=== PATIENT | female | born 1960 | race Caucasian/White ===

== ENCOUNTER 2023-06-19 14:55 | Outpatient (AMB) | payer OTHER, SELFPAY ==
--- NOTE | 2023-06-19 15:06 | A.OFFVIS_ITS ---
Vital Signs 06/19/23 15:13 Height 5 ft 4 in Weight 199 lb 6 oz BMI 34.2 BP 130/80 Blood Pressure Location Rt brachial Position Sitting Respiration 17 Pulse 83 Pulse Source Pulse Oximeter Pulse Oximetry (%) 96 Oxygen Delivery Method Room Air Intake Visit Reasons: ENP-Wht matter changes/Fibromuscular/Confusio Intake Note: Pt presents to the office for a new pt evaluation for white matter changes, fibromuscular dysplasia and episodes of confusion. Foreign Legal Consultant Required: No Allergies amoxicillin [From Augmentin] Allergy (Mild, Verified 06/19/23 15:08) Hives clavulanic acid [From Augmentin] Allergy (Mild, Verified 06/19/23 15:08) Hives latex Allergy (Mild, Verified 06/19/23 15:08) Rash sulfa Allergy (Mild, Uncoded 06/19/23 15:08) Hives Medication List - Last Reconciled 06/19/23 by Maria C Rodríguez MD albuterol sulfate 90 mcg/actuation (Proventil HFA) 1 puff inhalation QID cholecalciferol (vitamin D3) 50 mcg PO DAILY clotrimazole 1% 1 appl topical BID cyclobenzaprine 10 mg PO BEDTIME diclofenac sodium 1% 2 grams topical QID fluticasone propion-salmeterol 100-50 mcg/dose (Wixela Inhub) 1 inh inhalation BID indapamide 1.25 mg PO QAM mupirocin 2% 1 appl topical BID peg-electrolyte soln 420 gram 240 mL PO Q10M HPI Comments Details: 62y/o female with h/o Fibromuscular dysplasia comes for evaluation of episodes of confusion. These episodes started about 6 mths ago but now has increased in frequency - 1-2 a week . The episodes last 5 minutes. Its mostly when she is driving but can also happen when she is in a store or at home. Her son has witnessed the episode as she looks confused but not dazed. when driving she feels like she does not know where she is going for few minutes. No fatigue or confusion after the episode. 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 she has h/o JACI and has CPAP.she sleeps 7 hrs a night . [facility] Medical History (Updated 06/19/23 @ 15:37 by Maria C Rodríguez MD) Episodic altered awareness JACI on CPAP Hiatal hernia HTN (hypertension) Vitamin D deficiency Fatty liver Hearing loss GERD (gastroesophageal reflux disease) Fibromyalgia Generalized anxiety disorder Fibromuscular dysplasia Surgical History S/P anal fissurectomy H/O total hysterectomy History of temporal artery biopsy H/O hemorrhoidectomy Family History Mother No problems noted. Father No problems noted. Social History Household Members: Spouse Housing: House Alcohol intake: never Patient Tobacco Use Status: Never used Tobacco Use of substances other than those prescribed or required for medical reasons: No Physical Exam Vital Signs: Last Vital Signs Pulse 83 06/19/23 15:13 Resp 17 06/19/23 15:13 BP 130/80 06/19/23 15:13 Pulse Ox 96 06/19/23 15:13 Oxygen Delivery Method Room Air 06/19/23 15:13 BMI result Body Mass Index 34.2 Const General: cooperative, healthy appearing, comfortable and anxious Nutritional Appearance: overweight Orientation/consciousness: patient oriented x3 Eyes Pupils: Equal, round and reactive pupils present Neuro General: patient oriented x3, gait normal, tone normal, moves all extremities and no focal motor deficits Cranial nerves: Yes Equal, round and reactive pupils present, Yes Bilaterally intact EOM present, Yes Nystagmus not present, Yes Normal facial strength present, Yes Midline tongue present, Yes Symmetric palate elevation present and Yes Ability to bilaterally elevate shoulders present Gait exam (Neuro): Normal gait present Motor exam (neuro): 5/5 motor strength present throughout and Normal motor muscle tone present throughout Deep tendon reflexes (DTR's): Right triceps reflex intensity grade: 1+, Left triceps reflex intensity grade: 1+, Rt Biceps (C5, C6): 1+, Left biceps reflex intensity grade: 1+, Right brachioradialis reflex intensity grade: 1+, Left brachioradialis reflex intensity grade: 1+, Right patellar reflex intensity gra de: 1+ and Left patellar reflex intensity grade: 1+ Coordination: [id number] test normal Assessment & Plan Assessment & Plan (1) Episodic altered awareness: Comment: ? SLeep attacks , sleep deprivation , unlikely to be seizures Code(s): R40.4 - Transient alteration of awareness Category: Medical (2) JACI on CPAP: Code(s): G47.33 - Obstructive sleep apnea (adult) (pediatric) Category: Medical (3) Generalized anxiety disorder: Code(s): F41.1 - Generalized anxiety disorder Category: Medical Plan I will evaluate her with Home sleep test, EEG I will trial her on escitalopram 10mg qd for anxiety Continue CPAP - compliance stressed I will check her Vit D TSH Vit B 12 CMP CBC ESR RPR Suggested to avoid driving . Orders: Orders EEG electroencephalogram Today G47.33 - Obstructive sleep apnea (adult) (pediatric), R40.4 - Transient alteration of awareness Complete Blood Count Auto Diff Today F41.1 - Generalized anxiety disorder, G47.33 - Obstructive sleep apnea (adult) (pediatric), R40.4 - Transient alteration of awareness TSH reflex Free T4 Today F41.1 - Generalized anxiety disorder, G47.33 - Obstructive sleep apnea (adult) (pediatric), R40.4 - Transient alteration of awareness Vitamin B12 and Folate Today F41.1 - Generalized anxiety disorder, G47.33 - Obstructive sleep apnea (adult) (pediatric), R40.4 - Transient alteration of awareness Vitamin D 25-OH (D2 and D3) Today F41.1 - Generalized anxiety disorder, G47.33 - Obstructive sleep apnea (adult) (pediatric), R40.4 - Transient alteration of awareness RPR Monitor reflex titer Today F41.1 - Generalized anxiety disorder, G47.33 - Obstructive sleep apnea (adult) (pediatric), R40.4 - Transient alteration of awareness RT home sleep study Today G47.33 - Obstructive sleep apnea (adult) (pediatric), R40.4 - Transient alteration of awareness Comprehensive Met. Panel Today F41.1 - Generalized anxiety disorder, G47.33 - Obstructive sleep apnea (adult) (pediatric), R40.4 - Transient alteration of awareness Erythrocyte Sedimentation Rate Today F41.1 - Generalized anxiety disorder, G47.33 - Obstructive sleep apnea (adult) (pediatric), R40.4 - Transient alteration of awareness Medications: New escitalopram oxalate 10 mg PO DAILY 30 tabs 6RF Coding Level of Care Code New Pt Level 4 (48650) Diagnoses Episodic altered awareness R40.4 JACI on CPAP G47.33 Generalized anxiety disorder F41.1
[2023-06-19 15:13] VITALS: BP 130/80; PULSE 83; RESP 17; O2SAT 96; BMI 34.2
== END 2023-06-19 16:04 | disposition home or self-care (01) ==
PROVIDERS: PCP Internal Medicine; Visit Provider Psychiatry & Neurology Neurology
DX: R40.4 Transient alteration of awareness (principal); G47.33 Obstructive sleep apnea (adult) (pediatric); F41.1 Generalized anxiety disorder
CPT/HCPCS: 99204; 99214

== ENCOUNTER → 2023-06-19 14:55 | Outpatient (BNVA) | payer OTHER, SELFPAY | PROVIDERS: PCP Internal Medicine; Visit Provider Psychiatry & Neurology Neurology ==

== ENCOUNTER 2023-06-19 15:50 | Outpatient (REF) | payer OTHER, SELFPAY ==
[2023-06-19 17:31] LABS: MANUAL DIFF FLAG NO
[2023-06-19 17:36] LABS: Basophils Absolute Auto 0.1 X10*3/uL (0.0-0.2); Basophils Percent Auto 0.9 % (0-2); Eosinophils Absolute Auto 0.1 X10*3/uL (0.0-0.4); Eosinophils Percent Auto 0.7 % (0-4); Hematocrit 43.6 % (37.0-47.0); Hemoglobin 15.3 g/dl (12.0-16.0); Imm Gran Abs Auto 0.02 X10*3/uL (0.00-0.03); Imm Gran Pct Auto 0.2 % (0.0-0.4); Lymphocytes Absolute Auto 2.6 X10*3/uL (1.2-4.9); Lymphocytes Percent Auto 28.7 % (20-40); Mean Corpuscular HGB Conc 35.1 g/dl (31.0-35.0); Mean Corpuscular Volume 88.3 fL (80.0-98.0); Mean Platelet Volume 10.7 fL (9.4-12.3); Monocytes Absolute Auto 0.7 X10*3/uL (0.1-1.2); Monocytes Percent Auto 7.4 % (2-11); Neutrophils Absolute Auto 5.7 x10*3/uL (2.0-8.3); Neutrophils Percent Auto 62.1 % (45-73); Platelet Count 218 X10*3/uL (160-400); Red Blood Count 4.94 X10*6/uL (4.20-5.50); Red Cell Distribution Width 12.2 % (11.0-16.0); White Blood Count 9.2 X10*3/uL (4.8-10.8)
[2023-06-19 17:54] LABS: Alanine Aminotransferase 52 U/L (0-31); Alkaline Phosphatase 93 U/L (39-117); Anion Gap 14 (12-20); Aspartate Amino Transferase 29 U/L (5-31); Bilirubin Total 0.8 mg/dL (0.0-1.0); Blood Urea Nitrogen 16 mg/dL (9-16); Calcium 9.5 mg/dL (8.4-10.2); Carbon Dioxide 28 mmol/L (22-29); Chloride 101 mmol/L (96-108); Estimated Glomerular Filt Rate > 60; Glucose Random 96 mg/dL (60-115); Potassium 3.1 mmol/L (3.3-5.1); Sodium 140 mmol/L (135-145); Total Protein 6.9 g/dL (6.5-8.0)
[2023-06-19 18:08] LABS: TSH reflex Free T4 1.03 uIU/mL (0.32-4.0)
[2023-06-19 18:27] LABS: Folate 7.9 ng/mL (> or = 4.0); Vitamin B12 428 pg/mL (200-900)
[2023-06-19 18:38] LABS: Erythrocyte Sedimentation Rate 7 MM/HR (0-20)
[2023-06-23 17:02] LABS: Vitamin D 25-OH, D2 <4 ng/mL; Vitamin D 25-OH, D3 23 ng/mL; Vitamin D 25-OH, Total 23 ng/mL (30-100)
[2023-06-24 17:14] LABS: RPR Rapid Plasma Reagin NON-REACTIVE (NON-REACTIVE)
== END 2023-06-19 15:51 | disposition home or self-care (01) ==
LOC: HO.HKASLDS 15:50
PROVIDERS: Visit Provider Psychiatry & Neurology Neurology
DX: R40.4 Transient alteration of awareness (principal); F41.1 Generalized anxiety disorder; G47.33 Obstructive sleep apnea (adult) (pediatric)
CPT/HCPCS: 36415; 80053; 82306; 82607; 82746; 84443; 85025; 85652; 86592

== ENCOUNTER 2023-07-24 13:02 | Outpatient (REF) | payer OTHER, SELFPAY ==
--- NOTE | 2023-07-24 13:05 | EEG_ITS ---
FINDINGS: Waking background activity consists of a low to moderate voltage 8 to 9 Hz posterior alpha frequency intermixed anteriorly with low voltage fast frequencies and muscle artifacts. Recurrent surging and shock transients are seen from the frontal, central regions with phase reversal at F3, sometimes with some paroxysmal features lasting 2 to 3 seconds. No clinical symptoms are reported. Photic stimulation accentuates the abnormality and produced the bifrontal slowing. Photic stimulation is without activation. IMPRESSION: This EEG is considered abnormal due to sharp configuration wave forms with phase reversal at F3 and one burst of paroxysmal sharp discharge lasting up to 3 seconds, originating in the right frontal central region that could correlate with the focus of cerebral irritability. Clinical correlation is suggested. MD ROSANNE Weinberg/MARLENA / [id number]
== END 2023-07-24 13:03 | disposition home or self-care (01) ==
LOC: HO.NEURO 13:02
PROVIDERS: Visit Provider Psychiatry & Neurology Neurology
DX: R40.4 Transient alteration of awareness (principal); G47.33 Obstructive sleep apnea (adult) (pediatric)
CPT/HCPCS: 95816

== ENCOUNTER 2024-04-07 15:09 | Outpatient (AMB) | payer OTHER, SELFPAY ==
--- NOTE | 2024-04-07 15:12 | MHC.OFFVIS ---
Vital Signs 04/07/24 15:13 Height 5 ft 4 in Weight 201 lb BMI 34.5 Pulse 80 Pulse Source Pulse Oximeter Pulse Oximetry (%) 98 Oxygen Delivery Method Room Air Intake Visit Reasons: LVM TO R/S-2 month F/U Intake Note: patient presents for follow up results for EEG done on 08/01/23 Sleep study done on 07/24/23 and labs performed on 06/15/23 Allergies amoxicillin [From Augmentin] Allergy (Mild, Verified 04/07/24 15:15) Hives clavulanic acid [From Augmentin] Allergy (Mild, Verified 04/07/24 15:15) Hives latex Allergy (Mild, Verified 04/07/24 15:15) Rash sulfa Allergy (Mild, Uncoded 04/07/24 15:15) Hives Medication List - Last Reconciled 04/07/24 by Maria C Rodríguez MD albuterol sulfate 90 mcg/actuation (Proventil HFA) 1 puff inhalation QID cholecalciferol (vitamin D3) 50 mcg PO DAILY clotrimazole 1% 1 appl topical BID cyclobenzaprine 10 mg PO BEDTIME diclofenac sodium 1% 2 grams topical QID escitalopram oxalate 10 mg PO DAILY fluticasone propion-salmeterol 100-50 mcg/dose (Wixela Inhub) 1 inh inhalation BID indapamide 1.25 mg PO QAM mupirocin 2% 1 appl topical BID peg-electrolyte soln 420 gram 240 mL PO Q10M HPI Comments Details: 62y/o female with h/o Fibromuscular dysplasia comes for evaluation of episodes of confusion. EEG showed some sharp waves and i started her on levetiracetam 500mg bid But she stopped 3 months ago as she was feeling good. she is escitalopram 10mg qd has helped her anxiety , depression and is feeling good. History from initial visit-These episodes started about 6 mths ago but now has increased in frequency - 1-2 a week . The episodes last 5 minutes. Its mostly when she is driving but can also happen when she is in a store or at home. Her son has witnessed the episode as she looks confused but not dazed. when driving she feels like she does not know where she is going for few minutes. No fatigue or confusion after the episode. 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 she has h/o JACI and has CPAP.she sleeps 7 hrs a night . [facility] Medical History Episodic altered awareness JACI on CPAP Hiatal hernia HTN (hypertension) Vitamin D deficiency Fatty liver Hearing loss GERD (gastroesophageal reflux disease) Fibromyalgia Generalized anxiety disorder Fibromuscular dysplasia Surgical History S/P anal fissurectomy H/O total hysterectomy History of temporal artery biopsy H/O hemorrhoidectomy Family History Mother No problems noted. Father No problems noted. Social History Household Members: Spouse Housing: House Alcohol intake: never Patient Tobacco Use Status: Never used Tobacco Physical Exam Vital Signs: Last Vital Signs Pulse 80 04/07/24 15:13 Pulse Ox 98 04/07/24 15:13 Oxygen Delivery Method Room Air 04/07/24 15:13 BMI result Body Mass Index 34.5 Const General: cooperative, healthy appearing and comfortable Nutritional Appearance: overweight Orientation/consciousness: patient oriented x3 Eyes Pupils: Equal, round and reactive pupils present Neuro General: patient oriented x3, gait normal, tone normal, moves all extremities and no focal motor deficits Cranial nerves: Yes Equal, round and reactive pupils present, Yes Bilaterally intact EOM present, Yes Nystagmus not present, Yes Normal facial strength present, Yes Midline tongue present, Yes Symmetric palate elevation present and Yes Ability to bilaterally elevate shoulders present Gait exam (Neuro): Normal gait present Motor exam (neuro): 5/5 motor strength present throughout and Normal motor muscle tone present throughout Coordination: [id number] test normal Assessment & Plan Assessment & Plan (1) JACI on CPAP: Code(s): G47.33 - Obstructive sleep apnea (adult) (pediatric) Category: Medical (2) Generalized anxiety disorder: Code(s): F41.1 - Generalized anxiety disorder Category: Medical Plan Repeat EEG Continue escitalopram 10mg qd for anxiety Continue CPAP - compliance stressed Vit D TSH Vit B 12 CMP CBC ESR RPR - normal . Orders: Orders EEG electroencephalogram Today R40.4 - Transient alteration of awareness Coding Level of Care Code Est Pt Level 4 (29279) Diagnoses JACI on CPAP G47.33 Generalized anxiety disorder F41.1
[2024-04-07 15:13] VITALS: PULSE 80; O2SAT 98; BMI 34.5
--- OUTSIDE RECORDS SUMMARY | 2024-04-07 18:55 | XMS_ITS | Data Portability ---
Author Organization [facility], [facility] Address [address] [place] [address] Care Team Providers Care Card Writer Hand Name Role Phone NONI SOLIS Primary Care Provider [phone] Assessment Encounter Date Assessment Date Assessment LastModified by Organization Details LastModified Time 07/30/2023 07/30/2023 Nature the diagnosis was discussed with the patient today. At this time symptoms are most consistent with a medial meniscus tear very similar to her right knee. Status post arthroscopy doing well on that side. Patient does have an upcoming trip planned to [facility] and recommend a cortisone injection for temporary management of that left knee, last injection that knee only gave a couple weeks of relief. Also recommended an MRI for more definitive management to further evaluate the medial meniscus and likely arthroscopy on that side. Patient and family member agrees to treatment plan. All questions were asked and answered. [email or web address] Not available 07/31/2023 06:42:22 Plan of Treatment Reminders Order Date Submit Date Provider Last Modified By Organization Details Last Modified Time Details Appointments POST OP 15 2024 02:45P M Kelby Dominguez PA-C Not available Not available Not available Lab None recorded. Referral None recorded. Procedures None recorded. Surgeries knee arthrosco py with partial medial or lateral meniscect richard (SURG) 2023 025 [email or web address] [place], [address], [place], [address], 03/20/2024 09:07:20 Imaging MRI, knee, w/o contrast 2023 024 ANUSHA [facility] ([facility]), [address], [place], [address], 08/05/2023 14:23:14 Medication Orders meloxicam 15 mg tablet 2023 024 [id number], [address] [facility], [place], [address], 04/25/2023 12:29:21 Patient TargetsNo targets recorded. Patient Instructions Encounter Date Encounter Id Patient Instructions Last Modified By Organization Details Last Modified Time 04/25/2023 [id number] meniscus tear: exercises [email or web address] Not available 04/25/2023 12:29:19 Reason for Referral None Reported. Results Created Date Observation Date Name Description Value Unit Range Abnormal Flag Note LastModifiedBy Organization Detail LastModifiedTime 03/27/1903/27/2024 EP+AN ION GAP sodium 143 mmol/ L 133-14 5 normal Not Available [address], [address], 03/27/2024 14:34:06 03/27/19 25 03/27/2024 EP+AN ION GAP potassium 3.6 mmol/ L 3.6-5. 2 normal Not Available [address], [address], 03/27/2024 14:34:06 03/27/19 25 03/27/2024 EP+AN ION GAP chloride 101 mmol/ L 98-107 normal Not Available [address], [address], 03/27/2024 14:34:06 03/27/19 25 03/27/2024 EP+AN ION GAP carbon dioxide, total 30 mmol/ L 22-29 above high normal Not Available [address], [address], 03/27/2024 14:34:06 03/27/19 25 03/27/2024 EP+AN ION GAP anion gap 12 mmol/ L 4-17 Not Available [address], [address], 03/27/2024 14:34:06 08/05/19 24 08/04/2023 MRI, knee, w/o contr ast [facility] Access ion Number : [id number] Name: Stacia [address] Record Number : [id number] Date of : 1960 Date of Exam: 2023 Referr ing Physic savana: Natasha mcnally, Kelby [facility] ([facility]) [address] [facility] , [address] [place] [address] Exam: MR Knee (C-) CPT 94227 - Left Room Descri ption: [place] Siem Verio 3.0T Histor y: Other tear of the medial menisc us, curren t injury , subseq uent encoun ter. The patibernice t report s modera te to severe medial interm ittent left knee pain for one year. Techni que: MRI of the left knee was perfor med withou t intrav enous contra st. Compar mala: None. Findin gs: Joint effusi on: No joint effusi on is presen t. Hoffa' s fat pad is unrema rkable . Small amount of fluid is seen in a Chen' s cyst. Menisc i: Sagitt al proton densit y imagin g is degrad ed by patien t motion artifa ct. Focal unders urface signal is seen at the body information specialist ior third juncti on of the medial menisc us with questi onable small flap extend ing inferi tony (image s 5 and 6 of series 5). Tendon s and ligame nts: The ACL and PCL are intact . The collat eral ligame nts are unrema rkable . The ilioti bial band is unrema rkable . The extens or mechan ism appear s normal . Articu lar cartil age and bone: Chondr al thinni ng is seen in the medial greate r than latera l compar tments withou t focal chondr al defect . Mild chondr al thinni ng is seen in the patell ar apex and medial patell ar facet. Mild irregu lar chondr al thinni ng is seen inferi tony in the medial trochl ea with mild adjace nt subcho ndral marrow edema. No eviden ce of fractu re. Impres maite: 1. Unders urface flap tear at the juncti on the body and information specialist ior third of the medial menisc us as above. 2. Mild tricom partme ntal degene rative change . 3. Small Chen' s cyst.. Electr onical ly Signed By: Vilma Rao ra, MD [facility] ([facility]) [address], [place], [address], 08/06/2023 12:58:06 10/12/19 24 03/02/2023 imagi ng/di tonyos tic resul t No observ ation record ed. [email or web address] Not Available 09/13 04:53:00 Result Notes None recorded. Procedures Surgical History Date Name Laterality Status Provider Name and Address Organization Details Recorded Time 07/30/2023 Sports Knee 4&1 completed Kelby Dominguez PA-C [address], [place], [address], [facility] 07/31/2023 06:39:28 06/04/2023 Sports Knee 4&1 completed Kelby Dominguez PA-C [address], [place], [address], [facility] 06/05/2023 06:25:42 Imaging Results Imaging Date Name Status LastModified by Organiz ation Details LastModified Time 08/04/2023 MRI, knee, w/o contrast completed [facility] ([facility]) [address] [place], [address], 08/06/2023 12:58:06 03/02/2023 imaging/diagn ostic result completed [email or web address] Information not available 10/12/2023 04:53:00 Procedure Notes None recorded. Medical Equipment None Reported. Allergies Allergen ID Allergen Name Allergen Category Reaction Reaction Severity Criticality Documentation Date Start Date Code Code System Note Provider Name and Address Organization Details Recorded Time [id number] amoxicill in medicatio n Not available Not available Not available 07/30/2023 723 RxNorm DIANA lugo [facility] 15:48:17 606331 Augmentin medicatio n Not available Not available Not available 07/30/2023 20362 2 RxNorm DIANA LARIVIERE null, [facility] 4 15:48:29 728804 nitrofura ntoin medicatio n Not available Not available Not available 07/30/2023 7454 RxNorm DIANA LARIVIERE null, [facility] 4 15:48:43 299920 ciproflox acin medicatio n Not available Not available Not available 07/30/2023 2551 RxNorm DIANA LARIVIERE null, [facility] 4 15:48:53 236912 cefuroxim e Not available Not available Not available Not available 02/06/2024 2194 RxNorm [facility] 4 11:12:37 804286 levofloxa amber medicatio n Not available Not available Not available 02/06/2024 92731 RxNorm Alejandra [facility], [facility] 4 11:12:44 503997 metronida zole medicatio n Not available Not available Not available 02/06/2024 6922 RxNorm Alejandra [facility], [facility] 4 11:12:55 66691 latex environme nt,medica tion Not available Not available Not available 04/15/20232022 03587 91 RxNorm Not Available [facility] 4 11:39:38 39431 Product containin g penicilli n (product) medicatio n Not available Not available Not available 04/15/20232022 89558 8001 SNOMED Not Available [facility] 4 11:39:38 68238 Substance with sulfonami de structure and antibacte rial mechanism of action (substanc e) medicatio n Not available Not available Not available 04/15/20232022 39369 8003 SNOMED Not Available [facility] 4 11:39:38 Medications Name Sig Start Date Stop Date Status Note LastModified by Organization Details LastModified Time cyclobenzapr ine 10 mg tablet TAKE 1 TABLET BY MOUTH 2 TIMES A DAY NEEDED FOR MUSCLE SPASMS active Not Available Not Available No t Available nystatin 100,000 unit/mL oral suspension TAKE 5 ML SWISH AND SPIT 4 TIMES A DAY,X7 DAYS active Not Available Not Available Not Available prednisone 10 mg tablet active Not Available Not Available Not Available doxycycline hyclate 100 mg capsule 1 CAPSULE BY MOUTH 2 TIMES A DAY,X5 DAYS,INSTR: MAY TAKE WITH FOOD TO MINIMIZE ABDOMINAL DISCOMFORT active Not Available Not Available N ot Available albuterol sulfate 2.5 mg/3 mL (0.083 %) solution for nebulization INHALE 1 VIAL VIA NEBULIZER EVERY 6 HOURS NEEDED FOR WHEEZING active Not Available Not Available No t Available fosfomycin tromethamine 3 gram oral packet TAKE 1 TABLET BY MOUTH ONCE active Not Available Not Available N ot Available levetiraceta m 500 mg tablet TAKE 1 TABLET ORALLY 2 TIMES A DAY active Not Available Not Available Not Available meloxicam 15 mg tablet TAKE 1 TABLET EVERY DAY BY ORAL ROUTE WITH MEAL FOR 30 DAYS. active Not Available Not Available No t Available prednisone 20 mg tablet TAKE 3 TABS FOR DAYS 1-2, 2 TABS DAYS 3-4 AND 1 TAB DAYS 5-7 WITH FOOD OR MILK active Not Available Not Available No t Available metronidazol e 500 mg tablet TAKE 1 TABLET BY MOUTH EVERY 8 HOURS FOR 7 DAYS active Not Available Not Available No t Available betamethason e valerate 0.1 % lotion APPLY TO AFFECTED AREA ON FACE AND NECK TWICE A DAY FOR 10 DAYS active Not Available Not Available No t Available ciprofloxaci n 500 mg tablet active Not Available Not Available Not Available peg-electrol yte solution 420 gram oral solution PLEASE SEE ATTACHED FOR DETAILED DIRECTIONS active Not Available Not Available N ot Available pantoprazole 20 mg tablet,delay ed release active Not Available Not Available N ot Available hydromorphon e 2 mg tablet active Not Available Not Available Not Available prednisone 50 mg tablet TAKE 1 TABLET BY MOUTH EVERY DAY FOR 5 DAYS active Not Available Not Available No t Available indapamide 1.25 mg tablet TAKE 1 TABLET BY MOUTH EVERY MORNING active Not Available Not Available No t Available hydroxyzine HCl 25 mg tablet TAKE 1 TABLET BY MOUTH 4 TIMES A DAY,X5 DAYS, NEEDED FOR ITCHING active Not Available Not Available No t Available codeine 10 mg-guaifenes in 100 mg/5 mL oral liquid TAKE 5 ML BY MOUTH EVERY 6 HOURS NEEDED FOR COUGH active Not Available Not Available No t Available mupirocin 2 % topical ointment APPLY TO AFFECTED AREA TWICE A DAY active Not Available Not Available No t Available epinephrine 0.3 mg/0.3 mL injection, auto-injecto r INJECT 0.3 MG INTRAMUSCUL AR ONCE:MAY REPEAT IF NECESSARY active Not Available Not Available No t Available cefuroxime axetil 500 mg tablet TAKE 1 TABLET BY MOUTH EVERY DAY FOR 7 DAYS active Not Available Not Available No t Available levofloxacin 500 mg tablet TAKE 1 TABLET BY MOUTH EVERY DAY FOR 7 DAYS active Not Available Not Available No t Available albuterol sulfate HFA 90 mcg/actuatio n aerosol inhaler INHALE 2 PUFFS 4 TIMES A DAY NEEDED FOR WHEEZING active Not Available Not Available No t Available ondansetron 4 mg disintegrati ng tablet TAKE 1 TABLET BY MOUTH EVERY 8 HOURS NEEDED FOR NAUSEA/VOMI TING active Not Available Not Available No t Available clotrimazole 1 % topical cream APPLY TO AFFECTED AREA TWICE A DAY active Not Available Not Available No t Available naproxen 500 mg tablet TAKE 1 TABLET BY MOUTH TWICE A DAY active Not Available Not Available No t Available oxycodone 5 mg tablet TAKE 1-2 TABLETS EVERY 6 HOURS NEEDED. 3 DAY RX. active Not Available Not Available No t Available escitalopram 10 mg tablet TAKE 1 TABLET BY MOUTH EVERY DAY active Not Available Not Available No t Available clobetasol 0.05 % lotion APPLY A THIN FILM TWICE DAILY. RUB IN WELL AVOID FACE, NECK, SKIN FOLDINGS active Not Available Not Available No t Available nitrofuranto in monohydrate/ macrocrystal s 100 mg capsule TAKE 1 CAPSULE BY MOUTH TWICE A DAY FOR 5 DAYS active Not Available Not Available No t Available clotrimazole Clotrimazol e 1% Cream 2022 active Statu s: 'Curr ent'; Not Available Not Available Not Available indapamide active Not Available Not Av ailable Not Available diclofenac 1 % topical gel APPLY 1-3 GRAMS TO AFFECTED AREA 3-4 TIMES A DAY active Not Available Not Available Not Available oxycodone HCl-oxycodon e-ASA as directed 1-2 TABLETS EVERY [address] WHILE TAKING THIS MEDICATION 2023 active Statu s: 'Curr ent'; Not Available Not Available Not Available Breo Ellipta 100 mcg-25 mcg/dose powder for inhalation INHALE 1 PUFF BY MOUTH DAILY active Not Available Not Available Not Available Vitals Date Recorded Body height Body temperature Body mass index (BMI) Body weight Provider Name and Address Organization Details Last Updated DateTime 04/25/2023 162.56 cm 98.8 [degF] 34.3 kg/m2 01675.47 g TRICE HINKLE [facility] 04/25/2023 11:30:58 Date Recorded Body height Body mass index (BMI) Body weight Provider Name and Address Organization Details Last Updated DateTime 06/04/2023 162.56 cm 34.3 kg/m2 54053.47 g ARIANNA VIRK [facility] 06/04/2023 15:40:39 Date Recorded Body height Provider Name an d Address Organization Details Last Updated DateTime 07/30/2023 162.56 cm DIANA PAYAN [facility] 07/30/2023 15:45:40 Date Recorded Body height Provider Name an d Address Organization Details Last Updated DateTime 09/13/2023 162.56 [facility] 09/13/2023 07:41:36 Date Recorded Body height Body mass index (BMI) Body weight Body temperature Heart rate Oxygen saturation Oxygen saturation in Arterial blood by Pulse oximetry Systolic blood pressure Diastolic blood pressure Provider Name and Address Organization Details Last Updated DateTime 162.56 cm 34.3 kg/m2 92991.4 7 g 97.9 [degF] 92 /min 96 % 96 % 132 mm[Hg] 86 mm[Hg] Alejandra Dowell [facility] 11:33:07 Social History None recorded. Functional Status None recorded. Mental Status None recorded. Family History Nothing Reported. Medical History Condition Response Seizures/Epilepsy Y Sleep Apnea Y Hypertension Y Gynecological HistoryNo gynecological history recorded. Obstetrics History GPAL:G 0 P 0 0 0 0 Past Encounters Encounter ID Performer Location Encounter Start Date Encounter Closed Date Diagnosis/Indication Diagnosis SNOMED-CT Code Diagnosis ICD10 Code Diagnosis Note [id number] MD [facility] [address] [place] [address] 04/25/2023 10:57:43 05/14/2023 13:54:27 Acute tear of medial meniscus of right knee [id number] S83.231A [id number] Kelby Dominguez PA-C [facility] [address] [place] [address] 06/04/2023 15:16:29 06/24/2023 15:24:41 Tear of medial meniscus of knee 952224855 S83.241D You have been provided with a cortisone injection in order to reduce the pain and inflammati on that you are experienci ng. The injection consists of two medication s. Cortisone (an anti-infla mmatory that will take 48-72 hours to take effect) and Lidocaine (a numbing agent that will last 2-3 hours). Please note that not everyone will have a lasting response following the injection. PATIENT INSTRUCTIO NSOnce the Lidocaine wears off, you may have an increase in your pain. I recommend icing the affected area for 20 minutes 3-4 times per day.It is recommende d that you refrain from any high level activities using the joint or limb that was injected for approximat priyanka 24-48 hours. Normal day-to-day activities are generally not a problem.PO SSIBLE SIDE EFFECTSInd ividuals with dark complexion s may experience some skin discolorat ion locally at the site of the injection. There is the possibilit y of an increase in discomfort within 48 hours following the injection. This is called a ? flare? . To help minimize the chances of this, please see the post-injec tion instructio ns above.Ther e is a less than 1% chance of an infection. If you notice any signs of infection (redness, warmth, drainage, fever greater than 100 degrees) please call our office or contact us through the portal [facility]. [id number] Kelby Dominguez PA-C [facility] [address] [facility] [address] [place] [address] 07/30/2023 15:42:10 08/26/2023 15:57:08 Acute tear of medial meniscus of left knee [id number] 2123373 S83.242D Pain of le ft knee joint 3296034171 09372 M25.362 [id number] Kelby Dominguez PA-C [facility] [address] [place] [address] 09/13/2023 07:35:12 10/08/2023 13:58:57 [id number] MARSHAL Hanson [address] [place] [address] 02/06/2024 10:50:09 02/26/2024 15:31:28 Acute tear of medial meniscus of left knee [id number] 1917532 S83.232A Health Concerns Section Related Observation LastModified by Organization Detai ls LastModified Time None Recorded Concern Status LastModified by Organization Details LastModified Time None Recorded Advance Directives Directive None Recorded Payers Encounter Date Sequence Insurance Name Policy Number Policy Riley Covered Member ID Riley Member ID Guarantor Name 04/25/2023 1 [facility] [id number] [facility] [id number] 1 [facility] 06/04/2023 1 [facility] [id number] [facility] [id number] 1 [facility] 07/30/2023 1 [facility] [id number] [facility] [id number] 1 [facility] 09/13/2023 1 [facility] [id number] [facility] [id number] 1 [facility] 02/06/2024 1 [facility] [id number] [facility] [id number] 1 [facility] Notes Date Note Type Note Provider Name and Address Organization Details Recorded Time 04/25/2023 text/html Patient presents today for evaluation of her right knee. Approximately 10 days status post right knee diagnostic and operative arthroscopy for partial medial meniscectomy. Patient was found to have grade 2 changes of the patellofemoral medial and lateral compartments with a large complex medial meniscus tear with displaced fragment. Patient is doing well at this time. Has weaned from crutches. Has modified her activities to tolerance. Has continued to use Tylenol and naproxen. Continues on aspirin for DVT prophylaxis. Back today for scheduled follow-up. PFMSH and ROS has been reviewed, updated, and signed by me and is located in the patient's chart. On physical examination well-appearing older female no acute distress alert and oriented ? 3 . Pleasant affect. Mildly antalgic gait to the right with a shortened stance phase. Right knee trace intra-articular effusion. Benign-appearing portal sites. Gentle range of motion tolerated from 0-70?? of flexion. No Chen's cyst is appreciated. Calf supple. No skin lesions or lymphadenopathy. No varicosities. Mild medial joint line pain. No postoperative complications noted. Sutures are removed today. Steri-Strips are reapplied. Postoperative photos are reviewed with the patient documenting the intra-articular findings and treatment of her meniscus pathology. Impression Status post right knee arthroscopy doing well. Postoperative activities and restrictions were discussed at length. I dressed postoperative work notes. I dressed postoperative medication refills. I dressed return to work status and plan. I dressed potential physical therapy and provided prescription as necessary. Anticipate recheck 5 weeks for possible corticosteroid injection and consider return to work status. Konrad Tovar MD [address] [place] [address] [address], [place], [address], [facility] 04/25/2023 12:30:31 06/04/2023 text/html I am seeing the patient today under the supervision of {{ Brothers#}} who was available but who did not see the patient. HPI: Patient is in for recheck of {{right* left}} knee pain. Patient is approximately 6 weeks status post knee arthroscopy, found to have a complex meniscus tear with grade 2 changes patellofemoral and medial Faizan joint. States continues have some discomfort about the medial compartment of the {{medial* lateral}} compartment of the knee. Sharp shooting discomfort is now gone but will get pain with increased ambulation and physical activity. No new injury. Past family, medical, social history and review of systems has been reviewed, updated and is located in the patient? s chart. Examination:The patient is well appearing and in no apparent distress. Alert and oriented x3. Gait is symmetric. Vital signs per nurse's intake.Examination of the {{right* left}} knee reveals well-healing surgical incision, no effusion erythema or warmth. Range of motion from 0-125 of knee flexion. No instability to varus or valgus stress tests at 0 or 30 degrees. {{medial* latearal}} joint line tenderness. -Patella tenderness. - lachmans,- McMurrays. Calf soft and nontender.5/5 strength of knee flexion extension. Impression: 6 weeks status post {{right* left}} knee arthroscopy Plan: Nature of the diagnosis discussed with the patient today. At this time I do feel vast majority of discomfort is coming from underlying degenerative changes.. Recommended trialing cortisone injection today. Patient agrees. See procedure note. Updated work note given, follow back up in 6 weeks, sooner if symptoms dictate. [facility] speech recognition instrument worker software was used to create portions of this document. An attempt at proofreading has been made to minimize errors. Please call for corrections. Kelby Dominguez PA-C [address], [place], [address], [facility] 06/05/2023 06:26:34 07/30/2023 text/html I am seeing the patient today under the supervision of {{ Dr. Ginger Baron* Dr.Luber Dr. Nel Chen}} who was available but who did not see the patient. Patient comes in for recheck of left knee pain. Has history of pain discomfort in the medial aspect of that left knee. Patient initially presented with bilateral medial knee pain, right had previously been worse than left. Patient is undergone right knee arthroscopy for partial medial meniscectomy and doing very well in that regard. States that her left knee is the bigger pain generator now. There is no new injury to account for this. Previous cortisone injection with only a couple weeks of relief of symptoms. Overall not happy with pain level function of that left knee despite conservative management. Kelby Dominguez PA-C [address], [place], [address], [facility] 07/31/2023 06:48:40 09/13/2023 text/html HPI: Patient at time of her work contacted today in regards to her left knee. Had concerns over possible medial meniscus tear of the left knee underwent a cortisone injection at the last visit as he was getting ready go on a trip. States that overall cortisone injection is significantly improved her symptoms. States that only has some minimal discomfort at this time and does not feel like it needs to warrant more aggressive treatment at this time but is interested in overall structural integrity of that left knee. Patient did undergo MRI which is available for review today. Past family, medical, social history and review of systems has been reviewed, updated and is located in the patient? s chart. Examination: Patient answers questions appropriately. MRI overall shows a fairly healthy left knee. The cruciates and collaterals are intact. No significant arthritic changes no bony edema. Lateral meniscus is intact. There is a small undersurface tear that is seen on coronal view at the posterior horn body junction. Impression: Symptomatic medial meniscus tear left knee Plan: Nature of diagnosis discussed with patient today. Given recent chronicity of the right knee surgery patient hoping to avoid immediate surgery on the left side would like to continue to try to treat conservatively with the left knee. Did discuss the role of left knee arthroscopy with partial medial meniscectomy which is was ultimately required for her right knee. However left knee MRI is not as severe as the right knee and hopefully we can manage her symptoms nonoperatively however if she is a point where she fails conservative management would be appropriate for discussion of left knee arthroscopy with partial medial meniscectomy. Patient agrees to treatment plan. All questions asked and answered. Plan to call for such at her convenience going forward. This visit was a real-time telemedicine interaction between a physician therapy administrative assistant in the medical office and the patient in their home. The totality of the communication of information exchanged between the physician Field Superintendent (myself) and the patient during the course of the synchronous telemedicine services was sufficient to meet the sanchez components and/or requirements of the same service when rendered via daru-va-dhee interaction. I discussed with the patient risks and benefit of telemedicine services and the patient consented to the receipt of such telemedicine services. Telemedicine: Phone call Supervising MD: Dr. Morse Patient Location: Home Physician Location: [address] [place] [address] Time spent with patient: 5 Kelby Dominguez PA-C [address] [facility] [address], [place], [address], [facility] - [facility] 09/13/2023 08:08:31 02/06/2024 text/html Date: 01/31/2024Surgeon: Dr. LuberProcedure: Left knee arthroscopy partial medial meniscectomyI am seeing the patient today under the supervision of {{Dr. Ginger RodriguezBrothers Dr. Tovar* Dr. Nel Patel}} who was available but who did not see the patient. HPI: Patient is in for recheck of left knee pain. Has known medial meniscus tear of that left knee last seen for such in the office back in July at which time underwent a cortisone injection and an MRI which confirms medial meniscus tear. Patient is got excellent relief temporarily from the cortisone injection cortisone injection gave her about 3 months of relief now pain is returned overall not happy with pain level function despite conservative management. Of note patient recently had allergic reaction to some antibiotics was recently discharged from the hospital does affect the left side. On prednisone as well for such. Medical history: Arthritis, hypertension, obstructive sleep apnea with use of CPAP Surgical history: Right knee arthroscopy April 2023 Review of systems: Negative other than noted above Medications: Advair, albuterol, diclofenac gel, escitalopram, hydromorphone (from recent hospital discharge on 02/03), idapamide, prednisone Allergies: Sulfa drugs Social history: Denies alcohol tobacco or drug use Family history: Noncontributory Physical exam: The patient is well appearing and in no apparent distress. Alert and oriented x3. Gait is {{symetiric* antalgic on the right antalgic on the left}}.Vital signs:[default value]H EENT: Head normocephalic atraumatic, moist mucous membranesNeck: Supple without bruitsCardiovascular: Regular rate and rhythm no murmurs rubs or gallopsRespiratory: Lungs clear to auscultation bilaterally.Abdomen: Soft and nontender, active bowel soundsExtremities: Examination of the left knee reveals - effusion erythema or warmth. Range of motion from 0-125 of knee flexion. -instability to varus stress tests at 0 or 30 degrees. - instability to valgus stress tests as 0 and 30. + medial joint line tenderness. - Lateral joint line tenderness. - Patella tenderness. - lachmans,+ McMurrays. Calf soft and nontender. 5/5 strength of knee flexion extension. Evaluation of the rightROM is full, stability intact both anterior, posterior, and varus/valgus stress at both 0 and 30 degrees of flexion. No meniscal tenderness. Negative Dee's maneuver. No crepitus,no effusion, 5/5 strength. MRI: MRI overall shows a fairly healthy left knee. The cruciates and collaterals are intact. No significant arthritic changes no bony edema. Lateral meniscus is intact. There is a small undersurface tear that is seen on coronal view at the posterior horn body junction. Assessment: Symptomatic medial meniscus tear Plan: Detailed discussion regarding the patient? s pathoanatomy and treatment options conducted. The risks and benefits, potential complications including but not limited to failure to alleviate all pain, need for further surgery, infection, need for hardware implantation, stiffness, bleeding, neurovascular injury discussed in detail. I advised the patient that symptom resolution after this procedure is often protracted, and may be incomplete. I explained that, as an end result, permanent functional limitations may be recommended. All questions have been answered to their satisfaction, and I believe the patient has made an informed decision to proceed with surgery. Will likely need to wait until the skin reaction fully heals prior to surgical intervention. Patient agrees to treatment plan. All questions asked and answered Kelby Dominguez PA-C [address] [facility] [address], [place], [address], [place] - [facility] 02/06/2024 12:13:08 OBGyn Episode No OBEpisode recorded.
--- OUTSIDE RECORDS SUMMARY | 2024-04-07 18:56 | XMS_ITS | Clinical Summary ---
Author Organization [facility] Address [address] [place] [address] Phone Care Team Providers Care Respite Care Provider Name Role Phone Angel Ponce MD Primary Care Provider [phone] Allergies Active Allergy Reactions Criticality Noted Date Comments Amoxicillin-Pot Clavulanate Diarrhea,Itching Latex 02/19/2013 Sulfa (Sulfonamide Antibiotics) 05/2010 Medications albuterol 2.5 mg /3 mL (0.083 %) nebulizer solution Inhale 1 Vial into the lungs. 03/27/2023 Active albuterol HFA (PROAIR HFA ; PROVENTIL HFA ; VENTOLIN HFA) 90 mcg/actuation inhaler Inhale into the lungs. 03/27/2023 Active cetirizine (ZyrTEC) 10 mg tablet Take 1 Tablet by mouth. 05/13/2023 Active cyclobenzaprine (FLEXERIL) 10 mg tablet TAKE 1 TABLET TWICE A DAY NEEDED FOR MUSCLE SPASMS 01/10/2021 Active indapamide (LOZOL) 1.25 mg tablet TAKE 1 TABLET BY MOUTH EVERY DAY IN THE MORNING 06/09/2021 Active mupirocin (BACTROBAN) 2 % cream Apply small amount to affected area twice daily as needed 11/04/2020 Active Active Problems Problem Noted Date Diagnosed Date Hiatal hernia 11/28/2023 Heartburn 11/28/2023 Hearing loss 04/23/2021 Hypertension 03/05/2021 Anxiety 03/05/2021 JACI (obstructive sleep apnea) 11/04/2020 Fibromuscular dysplasia 07/05/2020 Overview (11/28/2023): [facility]; follow-up 01/03, sooner if necessary Esophageal dysmotility 02/09/2019 Elevated liver function tests 12/25/2018 Edema 10/12/2014 Hoarseness of voice 10/10/2013 Overview (11/28/2023): Dr Pro Vitamin D deficiency 02/24/2013 Fatty liver 2010 Obesity 01/10/2010 Fibromyalgia 04/14/2009 Overview (11/28/2023): Seen by dr ellison Encounters Date Type Department Care Team Description 01/15/2024 3:00 PM EST Office Visit Vascular Surgery - [place] [address] [facility] [address] [place] [address] Nelly Naranjo MD Venous insufficiency (Primary Dx); Varicose veins with pain from Last 3 Months Immunizations Name Administration Dates Next Due H1N1 Inj Preservative Free 01/19/2009 Influenza Quadravalent, MDCK , 0.5ml, preservative free (Flucelvax) 6mo and older 11/04/2020,01/05/2020,12/22/2018,11/07 Influenza Quadravalent, MDCK , 0.5ml, with preservative (Flucelvax) 6mo and older 12/10/2016 Influenza trivalent, 0.5mL, preservative free (Fluarix; FluLaval; Fluzone) ages 6mo and older (Afluria) 3 years and older 11/25/2014 [employer] SARS-CoV-2 COVID-19, mRNA, LNP-S, preservative free 12/12/2020 Pneumococcal polysaccharide 23 valent (Pneumovax 23) 2yo and older 01/05/2020 Td Tetanus diptheria (Tdvax) 7yo and older 01/05/2020 Tdap Tetanus diptheria acell ular pertussis (Boostrix; Adacel) 7yo and older 01/19/2009 Zoster recombinant (Shingrix ) 19yo and older 03/14/2020,02/01/2020 Surgical History Surgery Date Site/Laterality Comments OTHER SURGICAL HISTORY 2007 PROCEDURE: [place] TOTAL ABDOMINAL HYSTERECT W/WO RMVL TUBE OVARY; COMMENT: in two surgeries OTHER SURGICAL HISTORY PROCEDURE: ND CURTG/CAUT ANAL FISSURE W/DILAT SPHNCTR SPX 1ST ESOPHAGOGASTRODUODENOSCOPY 04/22/2009 PROCEDURE: ND ESOPHAGOGASTRODUODENOSCOPY TRANSORAL DIAGNOSTIC; COMMENT: normal COLONOSCOPY 06/17/2012 PROCEDURE: HISTORICAL COLONOSCOPY; COMMENT: normal; repeat in ten yrs OTHER SURGICAL HISTORY 06/30/2020 Right PROCEDURE: TEMPORAL ARTERY BIOPSY SPCMN PATHOLOGY EXAM OTHER SURGICAL HISTORY 01/2021 PROCEDURE: HISTORY OTHER; COMMENT: Excisional hemorrhoidectomy with revision of perianal scar Medical History Medical History Date Comments Fracture of ankle 05/25/2009 DX:Fracture of ankle Heartburn DX:Heartburn Epigastric discomfort DX:Epigast bhargavi discomfort Fatty liver DX:Fatty liver Dysphagia DX:Dysphagia Hiatal hernia DX:Hiatal hernia Esophageal dysmotility DX:Esopha geal dysmotility Family History Medical History Relation Name Comments Breast cancer Aunt m.aunt Asthma Daughter 1 Coronary artery disease Daughter 2 Thyroid disease Daughter 2 Bipolar disorder Daughter 3 Lung cancer Father smoker Colon cancer Maternal Grandfather in his late 60's Arthritis Mother Other: mesothelioma Mother Prostate cancer Uncle Diabetes Neg Hx Hypertension Neg Hx Relation Name Status Comments Aunt m.aunt Brother Alive 2,healthy Daughter 1 Daughter 2 Daughter 3 Father Alive does not know h im Maternal Grandfather Mother Alive healthy Uncle Social History Tobacco Use Types Packs/Day Years Used Date Smoking Tobacco: Never Smokeless Tobacco: Never Alcohol Use Standard Drinks/Week Comments No 0 (1 standard drink = 0.6 oz pur e alcohol) Comments Unknown Sex and Gender Information Value Date Recorded Sex Assigned at Not on file Legal Sex Female 12:53 AM EST Gender Identity Not on file Sexual Orientation Not on file Obstetrics History Last Filed Vital Signs Vital Sign Reading Time Taken Comments Blood Pressure 120/80 01/15/2024 2:58 PM EST Pulse 92 01/15/2024 2:58 PM EST Temperature - - Respiratory Rate 16 01/15/2024 2:58 PM EST Oxygen Saturation - - Inhaled Oxygen Concentration - - Weight 95.3 kg (210 lb) 01/15/2024 2:58 PM EST Height 162.6 cm (5' 4 ) 01/15/2024 2:58 PM EST Body Mass Index 36.05 01/15/2024 2:58 PM EST Plan of Treatment Upcoming Encounters Date Type Department Care Team (Late st Contact Info) Description 01/21/2025 3:00 PM EST Office Visit Vascular Surgery - [place] [address] [place] [address] Nelly Naranjo MD [address] [place] [address] Health Maintenance Due Date Last Done Comments Hepatitis A Vaccines (1 of 2 - Risk 2-dose series) 1980 Hepatitis B Vaccines (1 of 3 - Risk 3-dose series) 2021 RSV Immunization Patients 60+ Years Old (1 - Risk 60-74 years 1-dose series) 2021 Colorectal Cancer Screening: Colonoscopy 01/20/2022 Depression Screening 01/20/2022 HIV Screening 01/20/2022 Hypertension/CHF/CAD Annual BMP Blood Test 01/20/2022 01/06/2021 Social Influencers of Health Screening 01/20/2022 Breast Cancer Screening 01/10/2023 01/11/20, 12/25/2019, 04/30/2018, Additional history exists COVID-19 Vaccine ( season) 2023 12/22/2021, 12/12/2020, 04/16/2020, Additional history exists Influenza Vaccine (#1) 2023 3, 12/19/2021, 11/04/2020, Additional history exists Cholesterol Screening (Lipid Panel) 01/06/2026 01/06/2021 DTaP,Tdap,and Td Vaccines (3 - Td or Tdap) 01/04/2030 01/05/2020, 01/19/2009 Hepatitis C Screening Completed 04/20/2009 Zoster Vaccines Completed 01/06/2021, 02/0 02/2020, 02/01/2020 Pneumococcal Vaccine: 50+ Years Completed 01/26/2022, 01/05/2020 Pneumococcal Vaccine: Pediatrics (0 to 5 Years) and At-Risk Patients (6 to 64 Years) Completed 01/26/2022, 01/05/2020 HIB Vaccines Aged Out No longer eligi ble based on patient's age to complete this topic HPV Vaccines Aged Out No longer eligi ble based on patient's age to complete this topic IPV Vaccines Aged Out No longer eligi ble based on patient's age to complete this topic MMR Vaccines Aged Out No longer eligi ble based on patient's age to complete this topic Meningococcal ACWY Vaccine Aged Out N o longer eligible based on patient's age to complete this topic Meningococcal B Vacine Aged Out No lo nger eligible based on patient's age to complete this topic RSV Immunization Patients Under 20 months Aged Out No longer eligible based on patient's age to complete this topic Varicella Vaccines Aged Out No longer eligible based on patient's age to complete this topic Procedures Procedure Name Priority Date/Time Associated Diagnosis Comments SCREENING MAMMOGRAPHY BI 2-VIEW BREAST INC CAD Routine 01/10/2021 4:39 PM EST Encounter for screening mammogram for malignant neoplasm of breast ANNUAL BMP BLOOD TEST Routine 01/06/2021 LIPID PANEL Routine 01/06/2021 HEPATITIS C SCREENING Routine 04/20/2009 from Last 3 Months or Most Recently Relevant to Health Maintenance Results * SCREENING MAMMOGRAPHY BI 2-VIEW BREAST INC CAD (01/10/2021 4:39 PM EST) Anatomical Region Laterality Modality Radiographic Elise ging 12/25/2019 4:13 PM EST Narrative 01/11/2021 9:36 AM EST This is a summary report. The complete report is available in the patient's medical record. If you cannot access the medical record, please contact the sending organization for a detailed fax or copy. Full field digital screening mammography, using both 2D mammography and tomosynthesis, reviewed with CAD and compared to previous. The breast tissue is heterogeneously dense, limiting sensitivity. No suspicious mass, architectural distortion or suspicious calcifications are identified. IMPRESSION: : Dense breast tissue, limiting the sensitivity of mammography. No mammographic evidence of malignancy. BIRADS 1-Negative; N. 5 year breast cancer risk assessment 1.1 % Lifetime breast cancer risk assessment 6.2 % Breast cancer risk category Low (<15%) Procedure Note Florin Batista MD - 01/30/2022 This is a summary report. The complete report is available in thepatient's medical record. If you cannot access the medical record, pleasecontact the sending organization for a detailed fax or copy. Full field digital screening mammography, using both 2D mammography andtomosynthesis, reviewed with CAD and compared to previous. The breasttissue is heterogeneously dense, limiting sensitivity. No suspicious mass,architectural distortion or suspicious calcifications are identified. IMPRESSION: : Dense breast tissue, limiting the sensitivity of mammography. Nomammographic evidence of malignancy. BIRADS 1-Negative; N. 5 year breast cancer risk assessment 1.1 % Lifetime breast cancer risk assessment 6.2 % Breast cancer risk category Low (<15%) Angel Ponce MD IMG XR PROCEDURES Final Result * Annual BMP Blood Test (01/06/2021) Pathologist [facility] Annual BMP Blood Test Abstracted Historical Provider HEALTH MAINTENANCE Final Result * Lipid panel (01/06/2021) [facility] LDL/HDL Ratio 3 0 - 4 Triglycerides 119 0 - 150 mg/dL Cholesterol 173 0 - 200 mg/dL HDL 58 >=40 mg/dL LDL Cholesterol 92 0 - 100 mg/dL Blood Venous blood specimen / Unknown Result [facility] Historical Provider LAB BLOOD ORDERABLES Lakshmi l Result * Hepatitis C Screening (04/20/2009) [facility] Hepatitis C Screening Abstracted Result [facility] Provider HEALTH MAINTENANCE Final Result from Last 3 Months or Most Recently Relevant to Health Maintenance Insurance [facility] [address] Care Teams Respite Care Provider Relationship Specialty Start Date End Date Angel Ponce MD [address] [place] [id number] PCP - General 01/17/09
== END 2024-04-07 15:33 | disposition home or self-care (01) ==
PROVIDERS: PCP Internal Medicine; Visit Provider Psychiatry & Neurology Neurology
DX: G47.33 Obstructive sleep apnea (adult) (pediatric) (principal); F41.1 Generalized anxiety disorder
CPT/HCPCS: 99214

== ENCOUNTER → 2024-04-07 15:09 | Outpatient (BNVA) | payer OTHER, SELFPAY | PROVIDERS: PCP Internal Medicine; Visit Provider Psychiatry & Neurology Neurology ==

== ENCOUNTER 2024-05-14 11:15 | Outpatient (REF) | payer OTHER, SELFPAY ==
--- NOTE | 2024-05-14 11:18 | EEG_ITS ---
This is a 16 channel EEG with an EKG lead. The patient is reported awake during the tracing. Background EEG rhythm is mixed theta, beta with intermittent right hemispheric, sometime frontal, and sometime frontoparietal sharply controlled theta range discharges and sharp waves. Some lead and muscle artifacts are noted. Photic stimulation does not produce any significant driving, and is not performed. Cardiac lead does not reveal any significant abnormality. 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 MD LORELEI Butt/MARLENA / [phone]
--- OUTSIDE RECORDS SUMMARY | 2024-05-14 12:35 | XMS_ITS | Clinical Summary ---
Author Organization [facility] Address [address] [place] [address] Phone Care Team Providers Care Trackmobile Operator Name Role Phone Angel Ponce MD Primary Care Provider [phone] Allergies Active Allergy Reactions Criticality Noted Date [...] 04/14/2009 Overview (11/28/2023): Seen by dr ellison Immunizations Name Administration Dates Next Due H1N1 Inj Preservative Free 01/19/2009 Influenza Quadravalent, MDCK , 0.5ml, preservative free (Flucelvax) 6mo and older 11/04/2020,01/05/2020,12/22/2018,11/07 Influenza Quadravalent, MDCK , 0.5ml, with preservative (Flucelvax) 6mo and older 12/10/2016 Influenza trivalent, 0.5mL, preservative free (Fluarix; FluLaval; Fluzone) ages 6mo and older (Afluria) 3 years and older 11/25/2014 [employer] SARS-CoV-2 COVID-19, mRNA, LNP-S, preservative free 12/12/2020 Pneumococcal polysaccharide 23 valent (Pneumovax 23) 2yo and older 01/05/2020 Td Tetanus diptheria (Tdvax) 7yo and older 01/05/2020 Tdap Tetanus diptheria acell ular pertussis (Boostrix; Adacel) 7yo and older 01/19/2009 Zoster recombinant (Shingrix ) 19yo and older 03/14/2020,02/01/2020 Surgical History Surgery Date Site/Laterality Comments OTHER SURGICAL HISTORY 2007 PROCEDURE: [place] TOTAL ABDOMINAL HYSTERECT W/WO RMVL TUBE OVARY; COMMENT: in two surgeries OTHER SURGICAL HISTORY PROCEDURE: [place] CURTG/CAUT ANAL FISSURE W/DILAT SPHNCTR SPX 1ST ESOPHAGOGASTRODUODENOSCOPY 04/22/2009 PROCEDURE: [place] ESOPHAGOGASTRODUODENOSCOPY TRANSORAL DIAGNOSTIC; COMMENT: normal COLONOSCOPY 06/17/2012 [...] PM EST Office Visit Vascular Surgery - [place] [address] [place] [address] Nelly Naranjo MD [address] [place] [address] Health Maintenance Due Date Last Done Comments Hepatitis A Vaccines (1 of 2 - Risk 2-dose series) 1980 Hepatitis B Vaccines (1 of 3 - Risk 3-dose series) 2021 RSV Immunization Adult Patients (1 - Risk 60-74 years 1-dose series) 2021 Colorectal Cancer Screening: Colonoscopy 01/20/2022 Depression Screening 01/20/2022 HIV Screening 01/20/2022 Hypertension/CHF/CAD Annual BMP Blood Test 01/20/2022 01/06/2021 Social Influencers of Health Screening 01/20/2022 Breast Cancer Screening 01/10/2023 01/11/20, 12/25/2019, 04/30/2018, Additional history exists COVID-19 Vaccine ( season) 2023 12/22/2021, 12/12/2020, 04/16/2020, Additional history exists Influenza Vaccine (#1) 2023 , 12/19/2021, 11/04/2020, Additional history exists Cholesterol Screening [...] * Annual BMP Blood Test (01/06/2021) Pathologist [facility] Annual BMP Blood Test Abstracted Result [facility] Provider HEALTH MAINTENANCE Final Result * Lipid panel (01/06/2021) [facility] LDL/HDL Ratio 3 0 - 4 Triglycerides 119 0 - 150 mg/dL Cholesterol 173 0 - 200 mg/dL HDL 58 >=40 mg/dL LDL Cholesterol 92 0 - 100 mg/dL Blood Venous blood specimen / Unknown Result [facility] Provider LAB BLOOD ORDERABLES Lakshmi l Result * Hepatitis C Screening (04/20/2009) Pathologist [facility] Hepatitis C Screening Abstracted Result [facility] Provider HEALTH MAINTENANCE Final Result from Last 3 Months or Most Recently Relevant to Health Maintenance Insurance [facility] [address] [employer] Care Teams Trackmobile Operator Relationship Specialty Start Date End Date Angel Ponce MD [facility] [place] [address] PCP - General 01/17/09
== END 2024-05-14 11:16 | disposition home or self-care (01) ==
LOC: HO.NEURO 11:15
PROVIDERS: PCP Internal Medicine; Visit Provider Psychiatry & Neurology Neurology
DX: R40.4 Transient alteration of awareness (principal)
CPT/HCPCS: 95816

== ENCOUNTER → 2024-05-30 16:20 | Outpatient (BNV) | payer OTHER, SELFPAY | PROVIDERS: PCP Internal Medicine; Visit Provider Radiology Diagnostic Radiology | DX: G40.89 Other seizures (principal); R40.4 Transient alteration of awareness | CPT/HCPCS: 70553 ==

== ENCOUNTER 2024-05-30 16:30 | Outpatient (REF) | payer OTHER, SELFPAY ==
--- NOTE | ~2024-05-30 | MR_ITS ---
CLINICAL HISTORY: R40.4 - Transient alteration of awareness --- Additional Notes or Special Instructi ons: seizure MR brain with and without IV contrast. COMPARISON: None FINDINGS: No abnormal diffusion restriction in the brain parenchyma or extra-axial spaces. No evidence of mass, mass effect or midline shift. No intracranial hemorrhage or abnormal extra-axial fluid collection. Calcifications present along the falx cerebri. The ventricles are proportional with the degree of mild cerebral volume loss without evidence of hydrocephalus. Basilar cisterns are patent. Patchy hyperintense T2/FLAIR areas within the periventricular white matter and esteves radiata compatible with [id number] white matter small vessel disease. Cerebellar hemispheres and cerebellar vermis are normal. Fourth ventricle is normal. No brainstem abnormality is identified. Intracranial flow voids are patent. The visualized paranasal sinuses and mastoid air-cells are clear. No evidence of abnormal enhancement in the brain or meninges. IMPRESSION: 1. No acute intracranial findings. No evidence of acute ischemia, enhancing mass or mass effect. 2. [id number] white-matter small-vessel disease with mild global cerebral volume loss. This document has been electronically signed by: Juan Santiago MD on 06/02/2024 16:19:59
[2024-05-30] MEDS: gadobutroL 10 ML VIAL IVPUSH (17:28)
== END 2024-05-30 16:31 | disposition home or self-care (01) ==
LOC: HO.MRI 16:30
PROVIDERS: PCP Internal Medicine; Visit Provider Nurse Practitioner Family
DX: R40.4 Transient alteration of awareness (principal); R94.01 Abnormal electroencephalogram [EEG]
CPT/HCPCS: 70553; A9585

== ENCOUNTER 2024-09-28 14:47 | Outpatient (AMB) | payer OTHER, SELFPAY ==
[2024-09-28 14:49] VITALS: BP 148/76; PULSE 88; O2SAT 98; BMI 37.5
--- NOTE | 2024-09-28 14:49 | A.OFFVIS_ITS ---
Vital Signs 09/28/24 14:49 Height 5 ft 4 in Weight 218 lb 4 oz BMI 37.5 BP 148/76 H Blood Pressure Location Lt brachial Position Sitting Pulse 88 Pulse Oximetry (%) 98 Oxygen Delivery Method Room Air Intake Visit Reasons: 6 mo follow up Intake Note: Follow up JACI and Generalized anxiety disorder Hydraulic Spinner Required: No Accompanied by: Self / Same As Patient Allergies amoxicillin (From Augmentin) Allergy (Mild, Verified 09/28/24 14:53) Hives clavulanic acid (From Augmentin) Allergy (Mild, Verified 09/28/24 14:53) Hives latex Allergy (Mild, Verified 09/28/24 14:53) Rash sulfa Allergy (Mild, Uncoded 04/07/24 15:15) Hives Medication List - Last Reconciled 09/28/24 by Maria C Rodríguez MD albuterol sulfate 90 mcg/actuation (Proventil HFA) 1 puff inhalation QID cholecalciferol (vitamin D3) 50 mcg PO DAILY clotrimazole 1% 1 appl topical BID cyclobenzaprine 10 mg PO BEDTIME diclofenac sodium 1% 2 grams topical QID escitalopram oxalate 10 mg PO DAILY fluticasone propion-salmeterol 100-50 mcg/dose (Wixela Inhub) 1 inh inhalation BID indapamide 1.25 mg PO QAM levetiracetam 500 mg PO BID 30 days mupirocin 2% 1 appl topical BID HPI Comments Details: 64y/o female with h/o Fibromuscular dysplasia comes for f/u of episodes of confusion. EEG showed some sharp waves and i started her on levetiracetam 500mg bid and is doing well. she is escitalopram 10mg qd has helped her anxiety , depression and is feeling good. Her home sleep test done 1 year ago was inconclusive so she stopped CPAP but she misses it . she says she has trouble sleeping and has excessive daytime sleepiness. History from initial visit-These episodes started about 6 mths ago but now has increased in frequency - 1-2 a week . The episodes last 5 minutes. Its mostly when she is driving but can also happen when she is in a store or at home. Her son has witnessed the episode as she looks confused but not dazed. when driving she feels like she does not know where she is going for few minutes. No fatigue or confusion after the episode. 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 she has h/o JACI and has CPAP.she sleeps 7 hrs a night . [facility] Medical History (Updated 09/28/24 @ 15:26 by Maria C Rodríguez MD) Complex partial seizures Hypersomnia Snoring Episodic altered awareness JACI on CPAP Hiatal hernia HTN (hypertension) Vitamin D deficiency Fatty liver Hearing loss GERD (gastroesophageal reflux disease) Fibromyalgia Generalized anxiety disorder Fibromuscular dysplasia Surgical History S/P anal fissurectomy H/O total hysterectomy History of temporal artery biopsy H/O hemorrhoidectomy Family History Mother No problems noted. Father No problems noted. Social History Household Members: Spouse Housing: House Alcohol intake: never Patient Tobacco Use Status: Never used Tobacco Physical Exam Vital Signs: Last Vital Signs Pulse 88 09/28/24 14:49 BP 148/76 H 09/28/24 14:49 Pulse Ox 98 09/28/24 14:49 Oxygen Delivery Method Room Air 09/28/24 14:49 BMI result Body Mass Index 37.5 Const General: cooperative, healthy appearing and comfortable Nutritional Appearance: overweight Orientation/consciousness: patient oriented x3 Eyes Pupils: Equal, round and reactive pupils present Neuro General: patient oriented x3, gait normal, tone normal, moves all extremities and no focal motor deficits Cranial nerves: Yes Equal, round and reactive pupils present, Yes Bilaterally intact EOM present, Yes Nystagmus not present, Yes Normal facial strength present, Yes Midline tongue present, Yes Symmetric palate elevation present and Yes Ability to bilaterally elevate shoulders present Gait exam (Neuro): Normal gait present Motor exam (neuro): 5/5 motor strength present throughout and Normal motor muscle tone present throughout Coordination: [id number] test normal Assessment & Plan Assessment & Plan (1) Complex partial seizures: Code(s): G40.209 - Localization-related (focal) (partial) symptomatic epilepsy and epileptic syndromes with complex partial seizures, not intractable, without status epilepticus Category: Medical (2) Abnormal EEG: Code(s): R94.01 - Abnormal electroencephalogram [EEG] Category: Medical (3) Snoring: Code(s): R06.83 - Snoring Category: Medical (4) Hypersomnia: Code(s): G47.10 - Hypersomnia, unspecified Category: Medical (5) Generalized anxiety disorder: Code(s): F41.1 - Generalized anxiety disorder Category: Medical Plan Continue escitalopram 10mg qd for anxiety Continue keppra 500mg bid Repeat in lab sleep study . Orders: Orders RT PSG in-lab sleep study Today G47.10 - Hypersomnia, unspecified, R06.83 - Snoring Medications: Changed From levetiracetam 500 mg PO BID 30 days 60 tabs 6RF To levetiracetam 500 mg PO BID 180 tabs 6RF 90 days Refilled escitalopram oxalate 10 mg PO DAILY 90 tabs 6RF Coding Level of Care Code Est Pt Level 4 (66852) Complex EM visit Add On G2211 Diagnoses Complex partial seizures G40.209 Abnormal EEG R94.01 Snoring R06.83 Hypersomnia G47.10 Generalized anxiety disorder F41.1
--- OUTSIDE RECORDS SUMMARY | 2024-09-28 15:28 | XMS_ITS ---
Author Name [facility] Organization Unknown Care Team Organization Name Specialty Phone Email Start Date End Da [facility] Termed, PROVIDER Primary Care 12/19/202109/11
== END 2024-09-28 15:32 | disposition home or self-care (01) ==
LOC: HO.HSMS 14:48
PROVIDERS: PCP Internal Medicine; Visit Provider Psychiatry & Neurology Neurology
DX: G40.209 Localization-related (focal) (partial) symptomatic epilepsy and epileptic syndromes with complex partial seizures, not intractable, without status epilepticus (principal); R94.01 Abnormal electroencephalogram [EEG]; R06.83 Snoring; G47.10 Hypersomnia, unspecified; F41.1 Generalized anxiety disorder
CPT/HCPCS: 99214

== ENCOUNTER 2024-12-18 13:10 | Outpatient (REF) | payer OTHER, SELFPAY ==
--- OUTSIDE RECORDS SUMMARY | 2024-12-17 13:00 | XMS_ITS | Encounter Summary ---
Author Organization [facility] Address [address] [place] [address] Care Team Providers Care Before And After School Daycare Worker Name Role Phone Angel Ponce MD Primary Care Provider Reason for Visit * Therapy (Urgent) - Authorized Specialty Diagnoses / Procedures Referred By Contac t Referred To Contact Occupational Therapy Diagnoses Neurapraxia of right upper extremity, initial encounter Acute bursitis of right shoulder Severino Cano MD [address] [facility] [address] [place] [address] Phone: tel: fax: Referral ID Status Reason Start Date Expiration Date Visits Requested Visits Authorized [id number] Authorized Consult and Treat 08/26/2024 08/26/2025 8 25 Encounter Details Date Type Department Care Team (Late st Contact Info) Description 12/17/2024 1:00 PM EST Treatment [facility] [address] [facility] [address] [place] [phone] Bert Ace COTA/Gregorio Neurapraxia of right upper extremity, initial encounter (Primary Dx); Acute bursitis of right shoulder Social History Tobacco Use Types Packs/Day Years Used Date Smoking Tobacco: Never Smokeless Tobacco: Never Alcohol Use Standard Drinks/Week Comments No 0 (1 standard drink = 0.6 oz pur e alcohol) Comments Unknown Sex and Gender Information Value Date Recorded Sex Assigned at Female 09/04/2024 9:31 AM EDT Legal Sex Female 12:53 AM EST Gender Identity Female 09/04/2024 9:31 AM EDT Sexual Orientation Straight 09/04/2024 9: 31 AM EDT documented as of this encounter Progress Notes * JULES Rocha - 12/17/2024 1:00 PM EST [facility] - Outpatient OCCUPATIONAL THERAPY DAILY TREATMENT NOTE Date: 12/17/2024 Visit Number: [id number] Patient Name: Stacia Pritchard : 1960 Age: 64 y.o. Gender: female Diagnosis: ICD-10-CM ICD-9-CM 1. Neurapraxia of right upper extremity, initial encounter S44.91XA 955.9 2. Acute bursitis of right shoulder M75.51 726.10 Date of Onset: 08/26/2024 Referring Provider: Severino Cano MD Insurance: Payor: GENERIC / Plan: GENERIC / Product Type: Indemnity / Medications: Medications Ordered Prior to Encounter[1] Allergies: is allergic to amoxicillin-pot clavulanate, latex, nitrofurantoin, and sulfa (sulfonamide antibiotics). Precautions: Partial tear rotator cuff protocol, initiate isometrics avoid Abd and ER SUBJECTIVE Subjective Report: the pain is about a 6 Chart Reviewed: Yes Pain: 07/21 TREATMENT INTERVENTION Procedures: MHP R UE concurrent with A/AROM using UE ranger A/AROM scap retraction - min excursion only; did not tolerate assist at posterior sh due to pain- Vcs for technique Supine for reverse codman's - A/AROM for serratus punches, circumduction, small arc sh flex/ext, horiz abd/add Pain Reassessment: 07/21 Assessment/Response To Treatment: Good Patient noted to have no increase in pain Patient Education: Education provided: Yes Education Provided To: Patient utilizing Explanation mode(s) of education Response to Education: Good PLAN POC Development/Review: No Change in the Plan of Care; Participants: Patient Equipment Recommended: none; Equipment Provided: none Total Treatment Time: 45 TOTAL TREATMENT TIME: 45 Minutes Documentation completed by JULES Rocha [1] Current Outpatient Medications on File Prior to Visit Medication Sig Dispense Refill albuterol 2.5 mg /3 mL (0.083 %) nebulizer solution Inhale 1 Vial into the lungs. (Patient not taking: Reported on 07/20/2024) albuterol HFA (PROAIR HFA ; PROVENTIL HFA ; VENTOLIN HFA) 90 mcg/actuation inhaler Inhale into the lungs. (Patient not taking: Reported on 07/20/2024) cetirizine (ZyrTEC) 10 mg tablet Take 1 Tablet by mouth. (Patient not taking: Reported on 07/20/2024) cholecalciferol (Vitamin D3) 50 mcg (2,000 unit) capsule Take 50 mcg by mouth. cyclobenzaprine (FLEXERIL) 10 mg tablet TAKE 1 TABLET TWICE A DAY NEEDED FOR MUSCLE SPASMS escitalopram (LEXAPRO) 10 mg tablet Take 1 tablet (10 mg total) by mouth 1 (one) time each day. fluticasone furoate-vilanteroL (BREO ELLIPTA) 100-25 mcg/dose inhaler Inhale by mouth. indapamide (LOZOL) 1.25 mg tablet TAKE 1 TABLET BY MOUTH EVERY DAY IN THE MORNING LORazepam (ATIVAN) 1 mg tablet Take 1 tablet (1 mg total) by mouth See administration instructions for 10 days. 1 by mouth 1 hour prior to procedure may repeat X 1 dose 2 tablet 0 mupirocin (BACTROBAN) 2 % cream Apply small amount to affected area twice daily as needed No current facility-administered medications on file prior to visit. documented in this encounter Plan of Treatment Upcoming Encounters Date Type Department Care Team (Late st Contact Info) Description 12/23/2024 8:45 AM EST Treatment [facility] [address] [place] [phone] Bert Ace COTA/L 12/25/2024 9:45 AM EST Treatment [facility] [address] [place] [phone] Bert Ace COTA/L 12/29/2024 9:30 AM EST [facility] [address] [place] [phone] Bert Ace COTA/L 12/30/2024 3:30 PM EST Office Visit [facility] [place] [address] [facility] [address] [place] [phone] Severino Cano MD 175 [facility] [address] [place] [address] 12/31/2024 8:45 AM EST Treatment [facility] [address] [phone] Bert Ace COTA/Gregorio 01/04/2025 8:30 AM EST Treatment [facility] [address] [phone] Jarad Bosch, OT 01/06/2025 10:15 AM EST Treatment [facility] [address] [phone] Jarad Bosch, OT 01/11/2025 8:30 AM EST Treatment [facility] [address] [phone] Jarad Bosch, OT 01/13/2025 8:45 AM EST Treatment [facility] [address] [phone] Jarad Bosch, OT 01/21/2025 3:00 PM EST Office Visit Vascular Surgery [facility] [address] [place] [phone] Nelly Naranjo MD [address] [place] [phone] documented as of this encounter Goals Goal Patient Goal Type Associated Problems Recent Progress Patient-Stated? Author Pt goal General Yes Jarad Bosch, OT Note: For my Right arm to be as good as my left arm STG 6-8 visits General On track( 025 2:10 PM EDT) No Jarad Bosch, OT Note: Patient will report <=8/10 pain in R UE, - Met Patient will demo R sh flexion AROM improved by 10* to be able to wash R axilla, - Met Patient will demo R tobacco checkout clerk strength >= 3 in prep to be able to hold a cup, - Met Patient will demo improved functional use of R upper extremity as evidenced by Quick Dash score <= 70 to be able to wipe the counters, - progressing toward goal Patient will perform initial HEP MOD I - progressing toward goal 10/21/24 Patient will report <=6/10 pain in R UE, - Met Patient will demo R sh flexion AROM >= 85 to be able to reach the soap in the shower - Met Patient will demo R tobacco checkout clerk strength >= 20# to be able to hold a cup, - Met Patient will demo improved functional use of R upper extremity as evidenced by Quick Dash score <= 70 to be able to wipe the counters, - progressing toward goal Patient will perform upgraded HEP MOD I - progressing toward goal 12/03/24 Patient will report <=5/10 pain in R UE, Patient will demo R sh flexion AROM >= 100 to be able to reach items on low shelf Patient will demo R tobacco checkout clerk strength >= 25# to be able to hold a brush Patient will demo improved functional use of R upper extremity as evidenced by Quick Dash score <= 70 to be able to wipe the counters, and Patient will perform upgraded HEP MOD I, as it progresses LTG 24 visits General On track( 025 11:50 AM EDT) Jarad Braxton, OT Note: Patient will report <=4/10 pain in R UE, Patient will demo R UE AROM WFL for light IADLs, Patient will demo R UE strength WFL for light IADLs, Patient will demo R tobacco checkout clerk strength >= 20 to be able to hold a pot for cooking, Patient will demo R lateral pinch strength >= 6 to be able to open a package, Patient will demo improved functional use of R upper extremity as evidenced by Quick Dash score <= 40 to be able to perform light IADLs, and Patient will perform HEP MOD I documented as of this encounter Visit Diagnoses Diagnosis Neurapraxia of right upper extremity, initial encounter- Primary Acute bursitis of right shoulder documented in this encounter Care Teams Before And After School Daycare Worker Relationship Specialty Start Date End Date Angel Ponce MD [address] [place] [address] PCP - General 01/17/09 documented as of this encounter
--- NOTE | 2024-12-18 | EMG_ITS ---
Chief complaint: Right shoulder pain after a fall. Describes numbness in right hand. Reason for referral: Evaluate for brachial plexopathy Referred by: Dr. Cano Procedure done: Right upper extremity NCS/EMG Precautions and/or limitations: None The limb temperature was monitored continuously and remained between 32-36 degrees C during the performance of the NCS. Nerve Conduction Studies Anti Sensory Summary Table ?Stim Site NR Onset (ms) Norm Onset (ms) Peak (ms) Norm Peak (ms) O-P Amp (?V) Norm O-P Amp Site1 Site2 Delta-0 (ms) Dist (cm) Freddy (m/s) Norm Freddy (m/s) Right Lat Ante Brach Cutan Anti Sensory (Lat Forearm) Lat Biceps ? 1.3 1.5 9.5 Lat Biceps Lat Forearm 1.3 0.0 Right Med Ante Brach Cutan Anti Sensory (Med Forearm) Elbow ? 1.3 1.5 5.7 Elbow Med Forearm 1.3 0.0 Right Median Anti Sensory (2nd Digit) Wrist ? 2.5 3.2 <3.6 15.8 >10 Wrist 2nd Digit 2.5 14.0 56 Right Radial Anti Sensory (Thumb) Forearm ? 1.5 2.2 <3.1 18.8 Forearm Thumb 1.5 10.0 67 Right Ulnar Anti Sensory (5th Digit) Wrist ? 2.1 3.3 <3.7 17.1 >15.0 Wrist 5th Digit 2.1 14.0 67 Motor Summary Table ?Stim Site NR Onset (ms) Norm Onset (ms) O-P Amp (mV) Norm O-P Amp iAmp (mV) Amp (1st) (%) Site1 Site2 Delta-0 (ms) Dist (cm) Freddy (m/s) Norm Freddy (m/s) Right Median Motor (Abd Poll Brev) Wrist ? 3.0 <3.9 11.1 >4.5 13.1 100.0 Elbow Wrist 3.7 19.0 51 >45 Elbow ? 6.7 9.4 11.2 84.7 Right Ulnar Motor (Abd Dig Minimi) Wrist ? 2.7 <3.0 7.2 >5 7.9 100.0 B Elbow Wrist 2.9 15.0 52 >45 B Elbow ? 5.6 6.5 7.4 90.3 A Elbow B Elbow 1.3 10.0 77 >45 A Elbow ? 6.9 6.5 7.4 90.3 EMG ?Side Muscle Nerve Root Ins Act Fibs Psw Amp Dur Poly Recrt Int Pat Comment Right 1stDorInt Ulnar C8-T1 Nml Nml Nml Nml Nml 0 Nml Complete Right FlexCarRad Median C6-7 Nml Nml Nml Nml Nml 0 Nml Complete Right Biceps Musculocut C5-6 Nml Nml Nml Nml Nml 0 Nml Complete Right Triceps Radial C6-7-8 Nml Nml Nml Nml Nml 0 Nml Complete Right Deltoid Axillary C5-6 Nml Nml Nml Nml Nml 0 Nml Complete Paraspinal EMG ?Side Muscle Nerve Root Ins Act Fibs Psw Comment Right Cervical Upper Rami Nml Nml Nml Right Cervical Mid Rami Nml Nml Nml Right Cervical Lower Rami Nml Nml Nml FINDINGS: All motor and sensory nerves tested showed normal latencies, amplitudes and conduction velocities. Concentric needle EMG was performed in selected muscles of the right upper extremity and cervical paraspinals. Study did not reveal signs of electric abnormalities as shown in the table above. IMPRESSION: 1. This is a normal study. 2. There is no electrodiagnostic evidence for median neuropathy, ulnar neuropathy, brachial plexopathy, or cervical radiculopathy. Thank you for your kind referral. Gloria Dunbar MD, SYBIL Board Certified, [place] [employer] and [employer] (ABPMR) Board Certified, [place] [employer] Electrodiagnostic Medicine (ABEM) CODIN [id number] MTDD
--- OUTSIDE RECORDS SUMMARY | 2024-12-18 15:20 | XMS_ITS | Clinical Summary ---
Author Organization [facility] Address [address] [place] [address] Phone Care Team Providers Care Cattle Care Worker Name Role Phone Angel Ponce MD Primary Care Provider [phone] Allergies Active Allergy Reactions Criticality Noted Date Comments Amoxicillin-Pot Clavulanate Diarrhea,Itching,Hi ves 11/07/2016 Latex 02/19/2013 Nitrofurantoin 07/20/2024 Other Reaction(s): tingling of feet Sulfa (Sulfonamide Antibiotics) 03/17/2010 Medications albuterol 2.5 mg /3 mL (0.083 %) nebulizer solution Inhale 1 Vial into the lungs. 4 Active albuterol HFA (PROAIR HFA ; PROVENTIL HFA ; VENTOLIN HFA) 90 mcg/actuation inhaler Inhale into the lungs. 4 Active cetirizine (ZyrTEC) 10 mg tablet Take 1 Tablet by mouth. 4 Active cyclobenzaprin e (FLEXERIL) 10 mg tablet TAKE 1 TABLET TWICE A DAY NEEDED FOR MUSCLE SPASMS 1 Active indapamide (LOZOL) 1.25 mg tablet TAKE 1 TABLET BY MOUTH EVERY DAY IN THE MORNING 2 Active mupirocin (BACTROBAN) 2 % cream Apply small amount to affected area twice daily as needed 1 Active escitalopram (LEXAPRO) 10 mg tablet Take 1 tablet (10 mg total) by mouth 1 (one) time each day. Active cholecalcifero l (Vitamin D3) 50 mcg (2,000 unit) capsule Take 50 mcg by mouth. 2 Active fluticasone furoate-vilant Rut (BREO ELLIPTA) 100-25 mcg/dose inhaler Inhale by mouth. 4 Active LORazepam (ATIVAN) 1 mg tablet Take 1 tablet (1 mg total) by mouth See administration instructions for 10 days. 1 by mouth 1 hour prior to procedure may repeat X 1 dose 2 tablet 5 Active Active Problems Problem Noted Date Diagnosed Date Hiatal hernia 11/28/2023 Heartburn 11/28/2023 Hearing loss 04/23/2021 Hypertension 03/05/2021 Anxiety 03/05/2021 JACI (obstructive sleep apnea) 11/04/2020 Fibromuscular dysplasia (CMS/HCC V24) 07/05/2020 Overview (11/28/2023): Ada barrera; follow-up 01/03, sooner if necessary Esophageal dysmotility 02/09/2019 Elevated liver function tests 12/25/2018 Edema 10/12/2014 Hoarseness of voice 10/10/2013 Overview (11/28/2023): Dr Pro Vitamin D deficiency 02/24/2013 Fatty liver 2010 Obesity 01/10/2010 Fibromyalgia 04/14/2009 Overview (11/28/2023): Seen by dr ellison Encounters Date Type Department Care Team Description 12/17/2024 1:00 PM EST Treatment [facility] Occupational Therapy [address] [place] [phone] Bert Ace COTA/Gregorio Neurapraxia of right upper extremity, initial encounter (Primary Dx); Acute bursitis of right shoulder 12/03/2024 10:30 AM EDT Treatment [facility] Occupational Therapy [address] [phone] Jarad Bosch, JANAK Neurapraxia of right upper extremity, initial encounter (Primary Dx); Acute bursitis of right shoulder 12/01/2024 8:45 AM EDT Treatment [facility] Occupational Therapy [address] [place] [phone] Bernie Acena, SOTO/L Neurapraxia of right upper extremity, initial encounter (Primary Dx); Acute bursitis of right shoulder 11/26/2024 1:45 PM EDT Treatment [facility] Occupational Therapy [address] [place] [phone] Bernie Acena, SOTO/L Neurapraxia of right upper extremity, initial encounter (Primary Dx); Acute bursitis of right shoulder 11/24/2024 2:00 PM EDT Treatment [facility] Occupational Therapy [address] [place] [phone] Bernie Acena, SOTO/L Neurapraxia of right upper extremity, initial encounter (Primary Dx); Acute bursitis of right shoulder 11/20/2024 9:30 AM EDT Treatment [facility] Occupational Therapy [address] [place] [phone] Elmira Samuel, OT Neurapraxia of right upper extremity, initial encounter (Primary Dx) 11/18/2024 10:45 AM EDT Treatment [facility] Occupational Therapy [address] [place] [phone] Bert Ace, SOTO/L Neurapraxia of right upper extremity, initial encounter (Primary Dx); Acute bursitis of right shoulder 11/04/2024 1:00 PM EDT Treatment [facility] Occupational Therapy [address] [place] [phone] Elmira Samuel, OT Neurapraxia of right upper extremity, initial encounter (Primary Dx) 10/29/2024 8:45 AM EDT Treatment [facility] Occupational Therapy [address] [place] [phone] Bert Ace, SOTO/L Neurapraxia of right upper extremity, initial encounter (Primary Dx); Acute bursitis of right shoulder 10/27/2024 10:15 AM EDT Treatment [facility] [address] [phone] Bert Ace SOTO/L Neurapraxia of right upper extremity, initial encounter (Primary Dx); Acute bursitis of right shoulder 10/23/2024 1:15 PM EDT Treatment [facility] Occupational Therapy [address] [phone] Elmira Samuel, OT Neurapraxia of right upper extremity, initial encounter (Primary Dx) 10/21/2024 12:30 PM EDT Treatment [facility] Occupational Therapy [address] [phone] Jarad Bosch, OT Neurapraxia of right upper extremity, initial encounter (Primary Dx); Acute bursitis of right shoulder 10/06/2024 12:37 PM EDT - 10/06/2024 11:59 PM EDT Hospital Encounter [facility] Xray [address] [place] [address] Adhesive capsulitis of right shoulder Discharge Disposition: Home or Self Care 10/05/2024 11:15 AM EDT Treatment [facility] Occupational Therapy [address] [phone] Jarad Bosch, OT Neurapraxia of right upper extremity, initial encounter (Primary Dx); Acute bursitis of right shoulder 09/30/2024 11:00 AM EDT Treatment [facility] Occupational Therapy [address] [phone] Bert Ace SOTO/L Neurapraxia of right upper extremity, initial encounter (Primary Dx); Acute bursitis of right shoulder 09/28/2024 2:10 PM EDT Ancillary Procedure Orthopedic Surgery [facility] [address] [phone] 09/28/2024 2:00 PM EDT Procedure visit Orthopedic Surgery [facility] [address] [phone] Giovana Salvador MD Adhesive capsulitis of right shoulder (Primary Dx) 09/28/2024 9:30 AM EDT Treatment [facility] Occupational Therapy [address] [phone] Bert Ace COTA/Gregorio Neurapraxia of right upper extremity, initial encounter (Primary Dx); Acute bursitis of right shoulder 09/22/2024 12:15 PM EDT Treatment [facility] Occupational Therapy 175 [facility] [address] [place] [phone] Bert Ace COTA/Gregorio Neurapraxia of right upper extremity, initial encounter (Primary Dx); Acute bursitis of right shoulder 09/18/2024 10:30 AM EDT Office Visit Orthopedic [facility] [address] [phone] Severino Cano MD Acute bursitis of right shoulder (Primary Dx); Neurapraxia of right upper extremity, initial encounter; Adhesive capsulitis of right shoulder 09/18/[address] [facility] 160 175 [facility] [address] [place] [phone] Donis Bauer MA from Last 3 Months Immunizations Immunization Administration Dates Next Due H1N1 Inj Preservative Free 01/19/2009 Influenza Quadravalent, MDCK , 0.5ml, preservative free (Flucelvax) 6mo and older 11/04/2020,01/05/2020,12/22/2018,11/07 Influenza Quadravalent, MDCK , 0.5ml, with preservative (Flucelvax) 6mo and older 12/10/2016 Influenza trivalent, 0.5mL, preservative free (Fluarix; FluLaval; Fluzone) ages 6mo and older (Afluria) 3 years and older 11/25/2014 Pfizer SARS-CoV-2 COVID-19, mRNA, LNP-S, preservative free 12/12/2020 Pneumococcal polysaccharide 23 valent (Pneumovax 23) 2yo and older 01/05/2020 Td Tetanus diptheria (Tdvax) 7yo and older 01/05/2020 Tdap Tetanus diptheria acell ular pertussis (Boostrix; Adacel) 7yo and older 01/19/2009 Zoster recombinant (Shingrix ) 19yo and older 03/14/2020,02/01/2020 Surgical History Surgery Date Site/Laterality Comments OTHER SURGICAL HISTORY 2007 PROCEDURE: TX TOTAL ABDOMINAL HYSTERECT W/WO RMVL TUBE OVARY; COMMENT: in two surgeries OTHER SURGICAL HISTORY PROCEDURE: TX CURTG/CAUT ANAL FISSURE W/DILAT SPHNCTR SPX 1ST ESOPHAGOGASTRODUODENOSCOPY 04/22/2009 PROCEDURE: TX ESOPHAGOGASTRODUODENOSCOPY TRANSORAL DIAGNOSTIC; COMMENT: normal COLONOSCOPY 06/17/2012 [...] Orientation Straight 09/04/2024 9: 31 AM EDT Obstetrics History Last Filed Vital Signs Vital Sign Reading Time Taken Comments Blood Pressure 120/80 01/15/2024 2:58 PM EST Pulse 92 01/15/2024 2:58 PM EST Temperature - - Respiratory Rate 16 01/15/2024 2:58 PM EST Oxygen Saturation - - Inhaled Oxygen Concentration - - Weight 98.9 kg (218 lb) 09/28/2024 2:00 PM EDT Height 162.6 cm (5' 4.02 ) 09/28/2024 2:00 PM ED T Body Mass Index 37.4 09/28/2024 2:00 PM EDT Plan of Treatment Upcoming Encounters Date Type Department Care Team (Late st Contact Info) Description 12/23/2024 8:45 AM EST Treatment [facility] [address] [phone] Bert Ace SOTO/L 12/25/2024 9:45 AM EST Treatment [facility] [address] [phone] Bert Ace, SOTO/L 12/29/2024 9:30 AM EST Treatment [facility] [address] [phone] Bert Ace SOTO/L 12/30/2024 3:30 PM EST Office Visit [facility] [address] [phone] Severino Cano MD [address] [address] 12/31/2024 8:45 AM EST Treatment [facility] [address] [phone] Bert Ace, SOTO/L 01/04/2025 8:30 AM EST Treatment [facility] [address] [phone] Jarad Bosch, OT 01/06/2025 10:15 AM EST Treatment [facility] [address] [phone] Jarad Bosch, OT 01/11/2025 8:30 AM EST Treatment [facility] [address] [phone] Jarad Bosch, OT 01/13/2025 8:45 AM EST [facility] [address] [phone] Jarad Bosch, OT 01/21/2025 3:00 PM EST Office Visit [facility] [place] [address] [place] [phone] Nelly Naranjo MD [address] [place] [phone] Health Maintenance Due Date Last Done Comments Colorectal Cancer Screening: Colonoscopy 1961 Hepatitis A Vaccines (1 of 2 - Risk 2-dose series) 1980 RSV Immunization Adult Patients (1 - Risk 50-74 years 1-dose series) 08/11/2011 Hepatitis B Vaccines (1 of 3 - Risk 3-dose series) 2021 HIV Screening 01/20/2022 Hypertension/CHF/CAD Annual BMP Blood Test 01/20/2022 01/06/2021 Social Influencers of Health Screening 01/20/2022 Breast Cancer Screening 01/10/2023 01/11/20, 12/25/2019, 04/30/2018, Additional history exists Depression Screening 02/12/2024 COVID-19 Vaccine ( season) 2024 12/22/2021, 12/12/2020, 04/16/2020, Additional history exists Influenza Vaccine (#1) 2024 3, 12/19/2021, 11/04/2020, Additional history exists Cholesterol Screening (Lipid Panel) 01/06/2026 01/06/2021 DTaP,Tdap,and Td Vaccines (3 - Td or Tdap) 01/04/2030 01/05/2020, 01/19/2009 Hepatitis C Screening Completed 04/20/2009 Zoster Vaccines Completed 01/06/2021, 02/0 02/2020, 02/01/2020 Pneumococcal Vaccine: 50+ Years Completed 01/26/2022, 01/05/2020 HIB Vaccines Aged Out [...] age to complete this topic Meningococcal B Vaccine Aged Out No l onger eligible based on patient's age to complete this topic RSV Immunization Patients Under 20 months Aged Out No longer eligible based on patient's age to complete this topic Varicella Vaccines Aged Out No longer eligible based on patient's age to complete this topic Goals Goal Patient Goal Type Associated Problems [...] axilla, - Met Patient will demo R web content developer strength >= 3 in prep to be [...] shower - Met Patient will demo R web content developer strength >= 20# to be able to [...] on low shelf Patient will demo R web content developer strength >= 25# to be able to [...] for light IADLs, Patient will demo R web content developer strength >= 20 to be able to hold a pot for cooking, Patient will demo R lateral pinch strength >= 6 to be able to open a package, Patient will demo improved functional use of R upper extremity as evidenced by Quick Dash score <= 40 to be able to perform light IADLs, and Patient will perform HEP MOD I Procedures Procedure Name Priority Date/Time Associated Diagnosis Comments XR ARTHROCENTESIS ASP INJ JOINT MAJOR RIGHT Routine 10/06/2024 1:10 PM EDT Adhesive capsulitis of right shoulder US ARTHROCENTESIS ASP INJ JOINT MAJOR RIGHT Routine 09/28/2024 2:09 PM EDT Adhesive capsulitis of right shoulder TX ARTHROCENTESIS/ASPIRATI ON/INJECTION MAJOR JOINT/BURSA W/O U/S GUIDANCE Routine 09/28/2024 2:00 PM EDT Adhesive capsulitis of right shoulder SCREENING MAMMOGRAPHY BI 2-VIEW BREAST INC CAD Routine 01/10/2021 4:39 PM EST Encounter for screening mammogram for malignant neoplasm of breast ANNUAL BMP BLOOD TEST Routine 01/06/2021 LIPID PANEL Routine 01/06/2021 HEPATITIS C SCREENING Routine 04/20/2009 from Last 3 Months or Most Recently Relevant to Health Maintenance Results * XR Arthrocentesis Asp Inj Joint Major Right (10/06/2024 1:10 PM EDT) Anatomical Region Laterality Modality Body Right Radiographic Elise ging 10/06/2024 2:44 PM EDT Impressions 10/07/2024 2:06 PM EDT Impression: Successful right shoulder corticosteroid injection as described. -------- FINAL REPORT -------- Dictated By: Lola Reynolds Dictated Date: 10/06/2024 14:44 ET Assigned Physician: Wade Singh Reviewed and Electronically Signed By: Wade Singh Signed Date: 10/07/2024 14:06 ET Workstation ID: [id number] Transcribed By: Self Edit Transcribed Date: 10/06/2024 14:50 ET Resident/PA/GEOPHYSICAL DATA TECHNICIAN: Lola Reynolds Narrative 10/07/2024 2:06 PM EDT History: Adhesive capsulitis, right shoulder steroid injection PROCEDURE: Following sterile prep, draping and placement of local anesthesia over the right shoulder, 20-gauge needle advanced into the right glenohumeral joint via anterior approach with a small injection of Isovue-200 to confirm intra- articular position of the needle tip followed by intra-articular injection of 5cc 80mg Depo-Medrol/bupivacaine solution. The procedure was well tolerated by the patient with no immediate complication. Air kerma: 10.68 mGy Procedure Note Wade Singh MD - 10/07/2024 History: Adhesive capsulitis, right shoulder steroid injection PROCEDURE: Following sterile prep, draping and placement of localanesthesia over the right shoulder, 20-gauge needle advanced into theright glenohumeral joint via anterior approach with a small injection ofIsovue-200 to confirm intra-articular position of the needle tip followedby intra-articular injection of 5cc 80mg Depo-Medrol/bupivacaine solution.The procedure was well tolerated by the patient with no immediatecomplication. Air kerma: 10.68 mGy IMPRESSION: Impression: Successful right shoulder corticosteroid injection as described. -------- FINAL REPORT -------- Dictated By: Lola Reynolds Dictated Date: 10/06/2024 14:44 ET Assigned Physician: Wade Singh Reviewed and Electronically Signed By: Wade Singh Signed Date: 10/07/2024 14:06 ET Workstation ID: [id number] Transcribed By: Self Edit Transcribed Date: 10/06/2024 14:50 ET Resident/PA/GEOPHYSICAL DATA TECHNICIAN: Lola Reynolds us Giovana Salvador MD IMG FLUOROSCOPY PROCEDURES Fin al Result * US Arthrocentesis Asp Inj Joint Major Right (09/28/2024 2:09 PM EDT) Anatomical Region Laterality Modality Extremity Right Ultrasound Narrative 09/28/2024 5:19 PM EDT PROCEDURE Right Glenohumeral injection for osteoarthritis. Risk including infection, post-injection steriod flare, hypopigmentation, neurovascular injury and fat atrophy, were thoroughly discussed with the patient. The patients understood the risks and gave verbal consent for the procedure. The posteriorlateral shoulder was prepped with Chloro-prep after anatomical landmarks where palpated and visualized with ultrasound. Ethyle chloride was used as to topical anesthetic. Then using a 23-gauge 3-1/2 inch needle lidocaine 2 mL was used as a local anesthetic. She had severe increase in pain during initial procedure when advancing needle towards the glenohumeral joint and anesthsia with lidocaine. She was unable to tolerate the procedure further and injection was not completed us Giovana Salvador MD [facility] US PROCEDURES Final Result * TX ARTHROCENTESIS/ASPIRATION/INJECTION MAJOR JOINT/BURSA W/O U/S GUIDANCE (09/28/2024 2:00 PM EDT) Narrative Giovana Salvador MD - 09/28/2024 2:00 PM EDT Giovana Salvador MD 09/29/2024 5:54 PM L Inj/Asp: R glenohumeral Indications: pain Details: 22 G needle, posterior approach Medications: 3 mL lidocaine 1 % Outcome: (She had severe increase in pain during initial procedure when advancing needle towards the glenohumeral joint and numbing with lidocaine. She was unable to tolerate the procedure further and injection was not completed) Informed Consent: Laterality: Right Relevant images/test results available and reviewed: yes Health status cleared: Yes Procedure/treatment, purpose, treatment alternatives, risks/potential complications and benefits explained: yes Patient questions answered: yes Patient agrees, verbalizes understanding, and wants to proceed: yes Consent given by: Patient Informed consent discussion completed by Physician/PHONG with patient: Verbal Pre-procedure timeout performed: yes us Giovana Salvador MD IN CLINIC/BEDSIDE ORDERABLES F inal Result * SCREENING MAMMOGRAPHY BI 2-VIEW BREAST INC [...] * Annual BMP Blood Test (01/06/2021) Pathologist [facility] Annual BMP Blood Test Abstracted Historical Provider HEALTH MAINTENANCE Final Result * Lipid panel (01/06/2021) [facility] LDL/HDL Ratio 3 0 - 4 Triglycerides 119 0 - 150 mg/dL Cholesterol 173 0 - 200 mg/dL HDL 58 >=40 mg/dL LDL Cholesterol 92 0 - 100 mg/dL Blood Venous blood specimen / Unknown Result [facility] Historical Provider LAB BLOOD ORDERABLES Lakshmi l Result * Hepatitis C Screening (04/20/2009) [facility] Hepatitis C Screening Abstracted 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
== END 2024-12-18 13:11 | disposition home or self-care (01) ==
LOC: HO.NEURO 13:10
PROVIDERS: PCP Internal Medicine; Visit Provider Orthopaedic Surgery Orthopaedic Trauma
DX: S44.91XA Injury of unspecified nerve at shoulder and upper arm level, right arm, initial encounter (principal); R20.0 Anesthesia of skin; W19.XXXA Unspecified fall, initial encounter
CPT/HCPCS: 95886; 95910

== ENCOUNTER → 2024-12-18 13:30 | Outpatient (BNV) | payer OTHER, SELFPAY | PROVIDERS: PCP Internal Medicine; Visit Provider Physical Medicine & Rehabilitation | DX: M25.511 Pain in right shoulder (principal) | CPT/HCPCS: 95886; 95910 ==

== ENCOUNTER → 2025-01-01 19:30 | Outpatient (REF) | payer OTHER, SELFPAY ==
--- OUTSIDE RECORDS SUMMARY | 2025-01-01 21:23 | XMS_ITS | Encounter Summary ---
Author Organization [facility] Address [address] [place] [address] Care Team Providers Care Double End Tenoner Setter Name Role Phone Angel Ponce MD Primary Care Provider Unavail able [facility] Primary Care Provider Unavailabl e Encounter Details Date Type Department Care Team Description 02/09/2019 SCAN Medical Records [address] [place] [address] Abstract, Provider Social History Tobacco Use Types Packs/Day Years Used Date Smoking Tobacco: Never Smokeless Tobacco: Never Alcohol Use Standard Drinks/Week Comments No 0 (1 standard drink = 0.6 oz pur e alcohol) Sex Assigned at Date Recorded Not on file Job Start Date Occupation Industry Not on file Not on file Not on file documented as of this encounter Plan of Treatment Not on file documented as of this encounter Visit Diagnoses Not on filedocumented in this encounter Care Teams Double End Tenoner Setter Relationship Specialty Start Date End Date Angel Ponce MD PCP - General 01/17/09 02/01/22 [facility] Pcp PCP - General Internal Medicine 02/02/22 documented as of this encounter
--- OUTSIDE RECORDS SUMMARY | 2025-01-01 21:23 | XMS_ITS | Encounter Summary ---
Author Organization [facility] Address [address] [place] [address] Care Team Providers Care Coffee Bar Attendant Name Role Phone Angel Ponce MD Primary Care Provider Unavail able [facility], Pcp Primary Care Provider Unavailabl e Encounter Details Date Type Department Care Team Description 02/09/2019 Orders Only Gastroenterology - [address] [place] [address] Chris Snyder PA-C Epigastric pain; Fatty liver; Heartburn Social History Tobacco Use Types Packs/Day Years [...] on file documented as of this encounter Procedures Procedure Name Priority Date/Time Associated Diagnosis Comments CHG RADIOLOGIC EXAM UPR GI TRC DOUBLE CONTRAST STUDY Routine 02/06/2019 Epigastric pain Fatty liver Heartburn documented in this encounter Results * (UGI) CONTRAST X-RAY OF UPPER GI TRACT (02/06/2019) Chris Snyder PA-C OUTSIDE RADIOLOGY documented in this encounter Visit Diagnoses Diagnosis Epigastric pain Abdominal pain, epigastric Fatty liver Other chronic nonalcoholic liver disease Heartburn documented in this encounter Care Teams Coffee Bar Attendant Relationship Specialty Start Date End Date Angel Ponce MD PCP - General 01/17/09 02/01/22 [facility], Pcp PCP - General Internal Medicine 02/02/22 documented as of this encounter
--- OUTSIDE RECORDS SUMMARY | 2025-01-01 21:23 | XMS_ITS | Encounter Summary ---
Author Organization [facility] Address [address] [place] [address] Care Team Providers Care Medical Receptionist Name Role Phone Angel Ponce MD Primary Care Provider [facility], Pcp Primary Care Provider Unavailabl e Encounter Details Date Type Department Care Team Description 03/08/2021 Telephone Gastroenterology - [address] [place] [address] Slick Mckeon MD Social History Tobacco Use Types Packs/Day Years Used Date Smoking Tobacco: Never Smokeless Tobacco: Never Alcohol Use Standard Drinks/Week Comments No 0 (1 standard drink = 0.6 oz pur e alcohol) Sex Assigned at Date Recorded Not on file Job Start Date Occupation Industry Not on file Not on file Not on file COVID-19 Exposure Response Date Recorded In the last month, have you been in contact with someone who was confirmed or suspected to have Coronavirus / COVID-19? No / Unsure 03/02/2021 3:30 PM EST documented as of this encounter Miscellaneous Notes * Telephone Encounter - Bess Duff - 03/08/2021 8:54 AM EST Pt's son calling in [facility] pt called family medical department asking for a letter that [facility] has these four things Official letter head with medical record format Signature from Listing serious condition of pt Dates from surgery to return to work date which should be 01/24/2021-03/20/2021 Once letter ready son Nicholas will fruit picker machine operator Call him at [phone] Thanks documented in this encounter Plan of Treatment Not on file documented as of this encounter Visit Diagnoses Not on filedocumented in this encounter Care Teams Medical Receptionist Relationship Specialty Start Date End Date Angel Ponce MD PCP - General 01/17/09 02/01/22 [facility], Pcp PCP - General Internal Medicine 02/02/22 documented as of this encounter
--- OUTSIDE RECORDS SUMMARY | 2025-01-01 21:23 | XMS_ITS | Encounter Summary ---
Author Organization [facility] Address [address] [place] [address] Care Team Providers Care Kindergarten Teacher Name Role Phone Angel Ponce MD Primary Care Provider [facility], Pcp Primary Care Provider Unavailabl e Encounter Details Date Type Department Care Team Description 07/07/2019 Pt. Non Urgent Medic al Question Adult Medicine [address] [address] Angel Ponce MD Social History Tobacco Use Types Packs/Day Years Used Date Smoking Tobacco: Never Smokeless Tobacco: Never Alcohol Use Standard Drinks/Week Comments No 0 (1 standard drink = 0.6 oz pur e alcohol) Sex Assigned at Date Recorded Not on file Job Start Date Occupation Industry Not on file Not on file Not on file documented as of this encounter Progress Notes * Valery Brasher M.A. - 07/08/2019 10:59 AM EDT Mychart response sent. * Glenda Ramirez R.N. - 07/08/2019 10:37 AM EDTFrom: Stacia Pritchard To: Angel Ponce MD Sent: 07/07/2019 5:55 PM EDT Subject: Need appt for physical Please can I make a pot for a physical documented in this encounter Plan of Treatment Not on file documented as of this encounter Visit Diagnoses Not on filedocumented in this encounter Care Teams Kindergarten Teacher Relationship Specialty Start Date End Date Angel Ponce MD PCP - General 01/17/09 02/01/22 [facility], Pcp PCP - General Internal Medicine 02/02/22 documented as of this encounter
--- OUTSIDE RECORDS SUMMARY | 2025-01-01 21:23 | XMS_ITS | Encounter Summary ---
Author Organization [facility] Address [facility] [place] [address] Care Team Providers Care Turf Grower Name Role Phone Angel Ponce MD Primary Care Provider Unavail able [facility], Pcp Primary Care Provider Unavailabl e Encounter Details Date Type Department Care Team Description 01/23/2021 Orders Only Medical Records [address] [place] [address] Slick Mckeon MD Social History Tobacco Use [...] have Coronavirus / COVID-19? No / Unsure 01/10/2021 4:21 PM EST documented as of this encounter Plan of Treatment Not on file documented as of this encounter Procedures Procedure Name Priority Date/Time Associated Diagnosis Comments OUTSIDE LAB Routine 01/22/2021 documented in this encounter Results * OUTSIDE LAB (01/22/2021) Slick Mckeon MD LAB documented in this encounter Visit Diagnoses Not on filedocumented in this encounter Care Teams Turf Grower Relationship Specialty Start Date End Date Angel Ponce MD PCP - General 01/17/09 02/01/22 [facility], Pcp PCP - General Internal Medicine 02/02/22 documented as of this encounter
--- OUTSIDE RECORDS SUMMARY | 2025-01-01 21:23 | XMS_ITS | Encounter Summary ---
Author Organization [facility] Address [facility] [place] [address] Care Team Providers Care Science Specialist Name Role Phone Angel Ponce MD Primary Care Provider [facility], Pcp Primary Care Provider Unavailabl e Encounter Details Date Type Department Care Team Description 08/18/2019 Pt. Non Urgent Medic al Question Adult Medicine [address] [address] Angel Ponce MD Social History Tobacco Use [...] as of this encounter Progress Notes * Jessica Lynch M.A. - 08/19/2019 8:40 AM EDTFrom: Staciataco Pritchard To: Angel Ponce MD Sent: 08/18/2019 5:15 PM EDT Subject: Mammogram The mammogram appointment was canceled I am trying to schedule it online and I cannot do so I was told you???re booked till November if someone could call me back with a appointment on a Saturday as late as possible in November or December whatever day you have available for my mother???s mammogram [phone] documented in this encounter Plan of Treatment Not on file documented as of this encounter Visit Diagnoses Not on filedocumented in this encounter Care Teams Science Specialist Relationship Specialty Start Date End Date Angel Ponce MD PCP - General 01/17/09 02/01/22 [facility], Pcp PCP - General Internal Medicine 02/02/22 documented as of this encounter
--- OUTSIDE RECORDS SUMMARY | 2025-01-01 21:23 | XMS_ITS | Encounter Summary ---
Author Organization [facility] Address [facility] [place] [address] Care Team Providers Care Mergers And Acquisitions Attorney Name Role Phone Angel Ponce MD Primary Care Provider Unavail able [facility], Pcp Primary Care Provider Unavailabl e Encounter Details Date Type Department Care Team Description 01/26/2021 Orders Only Medical Records [address] [place] [address] Slick Mckeon MD Social History Tobacco Use [...] Name Priority Date/Time Associated Diagnosis Comments OUTSIDE PATHOLOGY Routine 01/24/2021 documented in this encounter Results * OUTSIDE PATHOLOGY (01/24/2021) Slick Mckeon MD OUTSIDE LAB documented in this encounter Visit Diagnoses Not on filedocumented in this encounter Care Teams Mergers And Acquisitions Attorney Relationship Specialty Start Date End Date Angel Ponce MD PCP - General 01/17/09 02/01/22 [facility], Pcp PCP - General Internal Medicine 02/02/22 documented as of this encounter
--- OUTSIDE RECORDS SUMMARY | 2025-01-01 21:24 | XMS_ITS | Encounter Summary ---
Author Organization [facility] Address [address] [place] [address] Care Team Providers Care Internal Security Manager Name Role Phone Angel Ponce MD Primary Care Provider Unavail able [facility], Pcp Primary Care Provider Unavailabl e Encounter Details Date Type Department Care Team Description 10/07/2013 [facility]ucker Report Medical Records [address] [place] [address] Omar Pro MD Social History Tobacco Use Types Packs/Day [...] on filedocumented in this encounter Care Teams Internal Security Manager Relationship Specialty Start Date End Date Angel Ponce MD PCP - General 01/17/09 02/01/22 [facility], Pcp PCP - General Internal Medicine 02/02/22 documented as of this encounter
--- OUTSIDE RECORDS SUMMARY | 2025-01-01 21:24 | XMS_ITS | Encounter Summary ---
Author Organization [facility] Address [address] [place] [address] Care Team Providers Care Spar Machine Operator Helper Name Role Phone Angel Ponce MD Primary Care Provider [facility] Pcp [facility] Encounter Details Date Type Department Care Team Description 07/05/2020 Orders Only Medical Records [address] [place] [address] Benji Carranza MD [address] [place] [id number] Social History Tobacco Use Types Packs/Day Years [...] have Coronavirus / COVID-19? No / Unsure 06/29/2020 9:43 AM EDT documented as of this encounter Plan of Treatment Not on file documented as of this encounter Procedures Procedure Name Priority Date/Time Associated Diagnosis Comments OUTSIDE PATHOLOGY Routine 06/30/2020 OUTSIDE PATHOLOGY Routine 06/30/2020 documented in this encounter Results * OUTSIDE PATHOLOGY (06/30/2020) Benji Carranza MD OUTSIDE LAB * OUTSIDE PATHOLOGY (06/30/2020) Benji Carranza MD OUTSIDE LAB documented in this encounter Visit Diagnoses Not on filedocumented in this encounter Care Teams Spar Machine Operator Helper Relationship Specialty Start Date End Date Angel Ponce MD PCP - General 01/17/09 02/01/22 [facility], Pcp PCP - General Internal Medicine 02/02/22 documented as of this encounter
--- OUTSIDE RECORDS SUMMARY | 2025-01-01 21:24 | XMS_ITS | Encounter Summary ---
Author Organization [facility] Address [address] [place] [address] Care Team Providers Care Hand Trucker Name Role Phone Angel Ponce MD Primary Care Provider [facility], Pcp Primary Care Provider Unavailabl e Reason for Visit * Reason Onset Date Comments Work note 11/02/2014 Encounter Details Date Type Department Care Team Description 11/02/2014 Telephone Medicine/Pediatrics - [address] [phone] Angel Ponce MD Work note Social History Tobacco Use Types Packs/Day Years Used Date Smoking Tobacco: Never Smokeless Tobacco: Never Alcohol Use Standard Drinks/Week Comments No 0 (1 standard drink = 0.6 oz pur e alcohol) Sex Assigned at Date Recorded Not on file Job Start Date Occupation Industry Not on file Not on file Not on file documented as of this encounter Miscellaneous Notes * Telephone Encounter - Brianda Miller PA-C - 11/02/2014 10:43 AM EDT Signed. * Telephone Encounter - Pat Rock L.P.N. - 11/02/2014 10:29 AM EDT Letter set up. Mom wants her ot of work until 11/10-when she sees Dr. Ponce for f/u. * Telephone Encounter - Sachi Garcia - 11/02/2014 10:08 AM EDT Clarification-the patient has a work note from Brianda but it is only covered until 11/08. The patient's son is worried because his mother won't be seen until 11/10, and he wants her to be covered until she is seen * Telephone Encounter - Sachi Garcia - 11/02/2014 9:58 AM EDT Work note is for: Out of Work Note Has patient been seen for the reason they were absent from work? Yes For what medical reason was/is patient out of work?: sprained ankle If Yes, by whom?: Brianda Date patient seen: 11/01/14 What dates does the patient need the note to cover: Beginning date: 11/01/14 End Date: 11/10/14 If note for return to work, what is return date: TBD-will be seen by 11/10/14 If note is to return to work, are there restrictions? No. If yes, list: Patient would like note to be: Placed in patient hand picker documented in this encounter Plan of Treatment Not on file documented as of this encounter Visit Diagnoses Not on filedocumented in this encounter Care Teams Hand Trucker Relationship Specialty Start Date End Date Angel Ponce MD PCP - General 01/17/09 02/01/22 [facility], Pcp PCP - General Internal Medicine 02/02/22 documented as of this encounter
--- OUTSIDE RECORDS SUMMARY | 2025-01-01 21:24 | XMS_ITS | Encounter Summary ---
Author Organization [facility] Address [address] [place] [address] Care Team Providers Care Rn Charge Name Role Phone Angel Ponce MD Primary Care Provider [facility] Pcp Primary Care Provider Unavailabl e Encounter Details Date Type Department Care Team Description 08/17/2020 Orders Only Vascular Surgery - [place] [address] [facility] [address] [place] [phone] Lissett Sun PA-C [address] [place] [id number] Fibromuscular dysplasia (HCC) (Primary Dx) Social History Tobacco Use Types Packs/Day Years [...] have Coronavirus / COVID-19? No / Unsure 08/17/2020 10:41 AM EDT documented as of this encounter Plan of Treatment Scheduled Orders Name Type Priority Associated Diagnoses Orde r Schedule BASIC METABOLIC PANEL Lab Routine Fibromuscular dysplasia (HCC) Expected: 08/17/2020, Expires: 08/17/2021 CREATININE, BLOOD ASSAY Lab Routine Fibromuscular dysplasia (HCC) Expected: 08/17/2020, Expires: 08/17/2021 documented as of this encounter Results * (ABNORMAL) BASIC METABOLIC PANEL (08/17/2020 10:41 AM EDT) Blood Urea Nitrogen 12 5 - 25 mg/dL 08/17/2020 3:02 PM EDT [facility] CREAT 0.42(L) 0.5 - 1.1 mg/dL 08/17/2020 3:02 PM EDT [facility] GLOMERULAR FILTRATION RATE > 60 08/17/2020 3:02 PM EDT [facility] Comment: If patient is -Macanese, multiply result by 1.21 Chronic Kidney Disease: < 60 ml/min/1.73 square meters Kidney Failure: < 15 ml/min/1.73 square meters NA 140 135 - 145 mEq/L 08/17/2020 3:02 PM EDT [facility] K 4.0 3.5 - 5.5 mmol/L 08/17/2020 3:02 PM EDT [facility] CL 104 96 - 110 mmol/L 08/17/2020 3:02 PM EDT [facility] CALCIUM 8.8 8.5 - 10.5 mg/dL 08/17/2020 3:02 PM EDT [facility] GLUCOSE 85 70 - 100 mg/dL 08/17/2020 3:03 PM EDT [facility] Comment:Reference range appl icable to fasting specimens only CARBON DIOXIDE (CO2) 27 21 - 32 mmol/L 08/17/2020 3:03 PM EDT [facility] ANION GAP 9 3 - 11 08/17/2020 3:03 PM EDT [facility] 08/17/2020 10:4 1 AM EDT 08/17/2020 10:42 AM EDT Narrative [facility] - 08/17/2020 3:03 PM EDT Release to patient->Immediate Lissett Sun PA-C LAB [facility] documented in this encounter Visit Diagnoses Diagnosis Fibromuscular dysplasia (HCC)- Primary Other specified disorders of arteries and arterioles Fibromuscular dysplasia (HCC) Other specified disorders of arteries and arterioles documented in this encounter Care Teams Rn Charge Relationship Specialty Start Date End Date Angel Ponce MD PCP - General 01/17/09 02/01/22 [facility], Pcp PCP - General Internal Medicine 02/02/22 documented as of this encounter
--- OUTSIDE RECORDS SUMMARY | 2025-01-01 21:24 | XMS_ITS | Encounter Summary ---
Author Organization [facility] Address [address] [place] [address] Care Team Providers Care Physician Asst Name Role Phone Angel Ponce MD Primary Care Provider [facility] Primary Care Provider Unavailabl e Encounter Details Date Type Department Care Team Description 09/05/2020 Orders Only Vascular Surgery - [place] [address] [facility] [address] [place] [phone] Lissett Sun PA-C [address] [facility] [address] [place] [phone] Fibromuscular dysplasia (HCC) Social History Tobacco Use Types Packs/Day Years [...] have Coronavirus / COVID-19? No / Unsure 09/02/2020 2:45 PM EDT documented as of this encounter Plan of Treatment Not on file documented as of this encounter Procedures Procedure Name Priority Date/Time Associated Diagnosis Comments CT ANGIO ABD & PELVIS W/WO CONTRAST Routine 08/30/2020 Fibromuscular dysplasia (HCC) CTA NECK W/WO CONTRAST-INCLU POST PROCESSING Routine 08/30/2020 Fibromuscular dysplasia (HCC) CTA HEAD W/WO CONTRAST-INCLU POST PROCESSING Routine 08/30/2020 Fibromuscular dysplasia (HCC) documented in this encounter Results * CT ANGIO ABD & PELVIS WITH OR W/WO CONTRAST (08/30/2020) Lissett Sun PA-C CT SCANS * CTA NECK W/WO CONTRAST-INCLU POST PROCESSING (08/30/2020) Lissett Sun PA-C CT SCANS * CTA HEAD W/WO CONTRAST-INCLU POST PROCESSING (08/30/2020) Lissett Sun PA-C CT SCANS documented in this encounter Visit Diagnoses Diagnosis Fibromuscular dysplasia (HCC) Other specified disorders of arteries and arterioles documented in this encounter Care Teams Physician Asst Relationship Specialty Start Date End Date Angel Ponce MD PCP - General 01/17/09 02/01/22 [facility], Pcp PCP - General Internal Medicine 02/02/22 documented as of this encounter
--- OUTSIDE RECORDS SUMMARY | 2025-01-01 21:24 | XMS_ITS | Encounter Summary ---
Author Organization [facility] Address [address] [place] [address] Care Team Providers Care Labor Custodian Name Role Phone Angel Ponce MD Primary Care Provider [facility] Pcp Primary Care Provider Unavailabl e Reason for Visit * Reason Onset Date Comments Faxed Order 04/21/2021 [facility]--audiology evaluation Encounter Details Date Type Department Care Team Description 04/21/2021 Telephone Medicine/Pediatrics [address] [phone] Angel Ponce MD Faxed Order ([facility] Rehabilitation--audiolo gy evaluation) Social History Tobacco Use Types Packs/Day Years [...] have Coronavirus / COVID-19? No / Unsure 03/27/2021 3:53 PM EST documented as of this encounter Miscellaneous Notes * Telephone Encounter - Annette Raymond M.A. - 04/21/2021 1:29 PM EST Placed on Dr. Ponce's desk * Telephone Encounter - Génesis Junior - 04/21/2021 1:04 PM EST Faxed order received by [facility]. Dos 04/19/21. Order placed in nurses forms bin for signature. Please fax back to [phone] after completion. documented in this encounter Plan of Treatment Not on file documented as of this encounter Visit Diagnoses Not on filedocumented in this encounter Care Teams Labor Custodian Relationship Specialty Start Date End Date Angel Ponce MD PCP - General 01/17/09 02/01/22 [facility], Pcp PCP - General Internal Medicine 02/02/22 documented as of this encounter
--- OUTSIDE RECORDS SUMMARY | 2025-01-01 21:24 | XMS_ITS | Encounter Summary ---
Author Organization [facility] Address [address] [place] [address] Care Team Providers Care Property Inspector Name Role Phone Angel Ponce MD Primary Care Provider [facility], Pcp Primary Care Provider Unavailabl e Reason for Visit * Reason Onset Date Comments TEST RESULTS 11/01/2014 Encounter Details Date Type Department Care Team Description 11/01/2014 Telephone Adult Medicine [address] [address] Brianda Hernandez PA-C TEST RESULTS Social History Tobacco Use Types Packs/Day Years [...] encounter Miscellaneous Notes * Telephone Encounter - Wayne Delgado M.A. - 11/01/2014 4:38 PM EDT Called pt and left voicemail asking for a call back [phone] ext [phone] * Telephone Encounter - Wayne Delgado M.A. - 11/01/2014 4:38 PM EDT Message copied by WAYNE DELGADO M.A. on SatNov 01, 2014 4:38 PM ------ Message from: BRIANDA HERNANDEZ Created: SatNov 01, 2014 4:35 PM Please call the patient and notify her that her xray imaging is normal. No need for orthopedics. PTis necessary, continue with other treatments discussed. Telephone Information: ------ documented in this encounter Plan of Treatment Not on file documented as of this encounter Visit Diagnoses Not on filedocumented in this encounter Care Teams Property Inspector Relationship Specialty Start Date End Date Angel Ponce MD PCP - General 01/17/09 02/01/22 [facility], Pcp PCP - General Internal Medicine 02/02/22 documented as of this encounter
== END ==
LOC: HO.SL 19:30
PROVIDERS: PCP Internal Medicine; Visit Provider Psychiatry & Neurology Neurology
DX: R06.83 Snoring (principal); G47.10 Hypersomnia, unspecified
CPT/HCPCS: 95810

== ENCOUNTER → 2025-01-01 20:41 | Outpatient (BNV) | payer OTHER, SELFPAY | PROVIDERS: PCP Internal Medicine; Visit Provider Psychiatry & Neurology Neurology | DX: G47.33 Obstructive sleep apnea (adult) (pediatric) (principal) | CPT/HCPCS: 95810 ==